=== PATIENT | female | born 1965 | race Caucasian/White ===

== ENCOUNTER 2018-08-11 17:00 | Inpatient (IN) ==
--- NOTE | 2018-08-11 18:02 | PROVIDER DOCUMENTATION ---
This chart was entered by Ivon Pierre Scribe, acting as scribe for Carlotta Garcia MD. HPI-General Adult - General Source: patient - History of Present Illness -Gen Adult Nature of Presenting Problems: Patient is a 52 year old female who presents to the ED with cough, nasal congestion and fever. Patient states she was diagnosed with pneumonia 2 days ago. Patient states was seen again today at an Urgent Care and was informed to go to the ED. Patient does not report chest pain or shortness of breath. Location of Pain/Injury: reports: none Pain Radiation: reports: no radiation Quality of Pain: reports: none Severity: reports: mild Timing: reports: still present Context/Activities at Onset: reports: light activity Modifying Factors: improves with: nothing Associated Symptoms: reports: cough, fever/chills (fever), sinus congestion/ drainage (congestion) Similar Symptoms Previously?: Yes Recently seen or treated by another doctor?: Yes <Carlotta Garcia - Last Filed: 08/11/18 18:24> - History of Present Illness -Gen Adult Nature of Presenting Problems: Patient has history of right upper lobe lung cancer that was removed last year. <Issac Swanson - Last Filed: 08/12/18 01:24> - General Chief Complaint: Cough Stated Complaint: RETURN/RETREAT Time Seen by Provider: 08/11/18 17:35 Allergies/Adverse Reactions: Patient Allergies Allergy/AdvReac Type Severity Reaction Status Date / Time clindamycin Allergy NAUSEA/VOMI Verified 08/11/18 17:25 TING codeine [Codeine] Allergy NAUSEA/VOMI Verified 08/11/18 17:25 TING hydrocodone bitartrate * Allergy NAUSEA/VOMI Verified 08/11/18 17:25 [From Lortab] TING levofloxacin [From Levaquin] Allergy RASH Verified 08/11/18 17:25 meperidine [From Demerol] Allergy NAUSEA/VOMI Verified 08/11/18 17:25 TING morphine Allergy NAUSEA/VOMI Verified 08/11/18 17:25 TING nitrofurantoin Allergy NAUSEA Verified 08/11/18 17:25 macrocrystalline * [From Macrodantin] promethazine HCl * Allergy NAUSEA/VOMI Verified 08/11/18 17:25 [From Phenergan] TING sulfamethoxazole Allergy NAUSEA/VOMI Verified 08/11/18 17:25 [From Bactrim] TING tramadol HCl * [From Ultram] Allergy NAUSEA Verified 08/11/18 17:25 trimethoprim [From Bactrim] Allergy NAUSEA/VOMI Verified 08/11/18 17:25 TING Home Medications: Home Medication List Medication Instructions Recorded Confirmed Last Taken Type Ondansetron [Zofran] 4 mg PO Q6H PRN PRN 01/20/18 01/20/18 01/20/18 09:00 History Ipratropium/Albuterol INH 1 puff INH RTQ6H PRN #1 inhaler 01/27/18 Unknown Rx [Combivent Respimat Inhaler] Omeprazole [Prilosec] 40 mg PO BID capsule 01/27/18 Unknown Rx Sucralfate [Carafate Liquid] 1 gm PO Q6HR udc 01/27/18 Unknown Rx Warfarin [Coumadin] 5 mg PO QHS #30 tablet 01/27/18 Unknown Rx CefDINIR [Omnicef] 250 mg PO BID #100 bottle 08/10/18 Unknown Rx Ketorolac [Toradol] 10 mg PO Q6H PRN PRN #20 tab 08/10/18 Unknown Rx Review of Systems - Adult - REVIEW OF SYSTEMS - ADULT Constitutional: reports: fever. denies: chills, fatique Eyes: reports: no symptoms reported Ears, Nose, Mouth & Throat: reports: sinus problem (congestion). denies: ear pain, throat pain Cardiovascular: reports: no symptoms reported Respiratory: reports: cough. denies: shortness of breath, wheezing Gastrointestinal: reports: no symptoms reported Genitourinary: reports: no symptoms reported Musculoskeletal: reports: no symptoms reported Integumentary: reports: no symptoms reported Neurological: reports: no symptoms reported Psychiatric: reports: no symptoms reported Endocrine: reports: no symptoms reported Hematologic/Lymphatic: reports: no symptoms reported Allergic/Immunologic: reports: no symptoms reported All Other Systems: Reviewed and Negative <JoseMorgani Steven - Last Filed: 08/11/18 18:24> Past History - Adult - PAST MEDICAL HISTORY-ADULT Review of Records: reports: Nursing Assessment Review, Medications Reviewed, Social history reviewed & non-contributory. Major Childhood Illnesses: reports: denies history Cardiovascular: reports: CHF, hyperlipidemia, other (vascular aaa dissection) Respiratory: reports: bronchitis, COPD, cancer (lung), other (clubbed fingers) Gastrointestinal: reports: GERD Obstetrical/Gynecological: reports: denies history Genitourinary: reports: denies history Musculoskeletal: reports: denies history Neurological: reports: denies history Psychiatric: reports: denies history Endocrine/Immune: reports: denies history Other Conditions: reports: denies history - PRIOR SURGERIES/PROCEDURES Surgical/Procedure History: reports: recent surgery (10/02/17 lung cancer removal) , BTL, other (vacular aaa diss) - IMMUNIZATION STATUS Childhood Immunizations: See Nurse Assessment Flu Vaccine: See Nurse Assessment - FAMILY HISTORY Family History: reviewed, not pertinent - SOCIAL HISTORY Smoking: cigarettes, less than 1 pack/day Provider spent 3-5 mins advising pt. on dangers of tobacco.: Discussed manners to quit use, and f/u contacts for add'l counseling. Substance Use: denies <Carlotta Garcia - Last Filed: 08/11/18 18:24> Physical Exam-General - PHYSICAL EXAM-ADULT Initial Vital Signs Reviewed: Yes - CONSTITUTIONAL General Appearance: alert, no apparent distress - EYES Eyes: PERRL/EOMI, pink conjunctivae - HEAD, EARS, NOSE, MOUTH & THROAT HENMT: normal ENT inspection - NECK Neck: normal inspection - RESPIRATORY Respiratory: chest non-tender, decreased breath sounds (bilateral) - CARDIOVASCULAR Cardiovascular: normal peripheral pulses, tachycardia - GASTROINTESTINAL (ABDOMEN) Abdominal Exam: normal bowel sounds, non tender, soft - MUSCULOSKELETAL Extremity: non-tender, normal inspection - SKIN Integumentary: normal color, normal turgor, warm/dry - NEUROLOGIC Neurologic: grossly normal - PSYCHIATRIC Psych/Mental Status: normal mood/affect, oriented x 3 <Carlotta Garcia - Last Filed: 08/11/18 18:24> Progress - PLAN OF CARE/RESULTS Progress/Plan/Lab Results: Vital Signs - 8 hr 08/11/18 17:21 Temperature 101.6 F H Pulse Rate 146 H Respiratory Rate 20 Blood Pressure 103/74 O2 Sat by Pulse Oximetry 96 Result Diagrams: 08/11/18 17:26 <Carlotta Garcia - Last Filed: 08/11/18 18:24> - PLAN OF CARE/RESULTS Progress/Plan/Lab Results: Vital Signs - 8 hr 08/11/18 17:21 08/11/18 18:21 08/11/18 19:07 Temperature 101.6 F H 101.2 F H 100.9 F H Pulse Rate 146 H 127 H 120 H Respiratory Rate 20 23 19 Blood Pressure 103/74 116/69 95/55 O2 Sat by Pulse Oximetry 96 98 97 08/11/18 19:42 08/11/18 19:57 08/11/18 20:26 Temperature 101.0 F H Pulse Rate 113 H 105 H 101 H Respiratory Rate 20 19 15 Blood Pressure 86/51 90/56 94/74 O2 Sat by Pulse Oximetry 98 98 99 08/11/18 20:50 08/11/18 21:00 08/11/18 21:21 Temperature Pulse Rate 97 H 94 H 95 H Respiratory Rate 18 14 18 Blood Pressure 98/66 96/57 90/58 O2 Sat by Pulse Oximetry 98 97 98 Laboratory Results - last 24 hr 08/11/18 08/11/18 08/11/18 17:26 17:26 17:26 WBC RBC Hgb Hct MCV MCH MCHC RDW Std Deviation Plt Count MPV Immature Gran % (Auto) Neut % (Auto) Lymph % (Auto) [place] % (Auto) Eos % (Auto) Baso % (Auto) Immature Gran # (Auto) Neut # (Auto) Lymph # (Auto) [place] # (Auto) Eos # (Auto) Baso # (Auto) PT INR PTT (Actin FS) Sodium 128 L Potassium 4.1 Chloride 92 L Carbon Dioxide 22 L Anion Gap 14 BUN 11 D Creatinine 0.8 Estimated GFR/1.73 m2 > 60 BUN/Creatinine Ratio 14 Glucose 125 H Calculated Osmolality 258 Calcium 9.5 Total Bilirubin 0.80 AST 49 H ALT 41 H Alkaline Phosphatase 165 H Creatine Kinase Troponin T < 0.010 Hqy-Q-Ghctarzrcxn Pept 346 H Total Protein 7.2 Albumin 4.1 Globulin 3.0 Albumin/Globulin Ratio 1.0 Plasma Lactate 08/11/18 08/11/18 08/11/18 17:26 18:07 18:07 WBC 9.70 RBC 4.00 L Hgb 13.4 Hct 38.0 MCV 95.0 MCH 33.5 H MCHC 35.3 RDW Std Deviation 11.5 Plt Count 174 MPV 10.6 H Immature Gran % (Auto) 0.1 Neut % (Auto) 81.6 H Lymph % (Auto) 11.6 L [place] % (Auto) 6.6 Eos % (Auto) 0.0 Baso % (Auto) 0.1 Immature Gran # (Auto) 0.01 Neut # (Auto) 7.91 H Lymph # (Auto) 1.13 L [place] # (Auto) 0.64 H Eos # (Auto) 0.00 Baso # (Auto) 0.01 PT 13.6 INR 0.99 PTT (Actin FS) 35.6 Sodium Potassium Chloride Carbon Dioxide Anion Gap BUN Creatinine Estimated GFR/1.73 m2 BUN/Creatinine Ratio Glucose Calculated Osmolality Calcium Total Bilirubin AST ALT Alkaline Phosphatase Creatine Kinase 54 Troponin T Asi-P-Wrewevcyphk Pept Total Protein Albumin Globulin Albumin/Globulin Ratio Plasma Lactate 08/11/18 18:11 WBC RBC Hgb Hct MCV MCH MCHC RDW Std Deviation Plt Count MPV Immature Gran % (Auto) Neut % (Auto) Lymph % (Auto) [place] % (Auto) Eos % (Auto) Baso % (Auto) Immature Gran # (Auto) Neut # (Auto) Lymph # (Auto) [place] # (Auto) Eos # (Auto) Baso # (Auto) PT INR PTT (Actin FS) Sodium Potassium Chloride Carbon Dioxide Anion Gap BUN Creatinine Estimated GFR/1.73 m2 BUN/Creatinine Ratio Glucose Calculated Osmolality Calcium Total Bilirubin AST ALT Alkaline Phosphatase Creatine Kinase Troponin T Zlr-I-Nlaamdextvt Pept Total Protein Albumin Globulin Albumin/Globulin Ratio Plasma Lactate 0.9 Orders Category Date Time Status Cardiac Monitoring DIRECTED Care 08/11/18 18:22 Active [place] Cath Insertion ORDERED Care 08/11/18 19:44 Active IV Insertion ORDERED Care 08/11/18 18:22 Completed IV Insertion ORDERED Care 08/11/18 19:44 Completed Intake and Output-Strict ORDERED Care 08/11/18 19:44 Active Notify MD of + Sepsis Screen NOW Care 08/11/18 18:22 Active Notify MD/PA/LONDON for exam NOW Care 08/11/18 19:44 Active Repeat Vital Signs .Blood Pressure Care 08/11/18 19:44 Active Repeat Vital Signs .Heart Rate Care 08/11/18 19:44 Active Repeat Vital Signs .Oxygen Saturation Care 08/11/18 19:44 Active Repeat Vital Signs .Respiratory Rate Care 08/11/18 19:44 Active Repeat Vital Signs .Temp Care 08/11/18 19:44 Active CHEST-PORTABLE [RAD] Stat Exams 08/11/18 17:[address] ABD/PELVIS/PULM ARTERIES [CT] Stat Exams 08/11/18 19:10 Ordered BLOOD CULTURE [BLDCUL] Stat Lab 08/11/18 17:58 Ordered CBC WITH ELECTRONIC DIFF [HEME] Stat Lab 08/11/18 17:26 Completed CK PROFILE [SP CHEM] Stat Lab 08/11/18 18:07 Completed COMPREHENSIVE METABOLIC PANEL [CHEM] Stat Lab 08/11/18 17:26 Completed LACTATE, PLASMA [CHEM] Lab 08/11/18 18:11 Completed LACTATE, PLASMA [CHEM] Lab 08/11/18 21:30 Uncollected LACTATE, PLASMA [CHEM] Lab 08/12/18 00:30 Uncollected PRO B-NATRIURETIC PEPTIDE Stat Lab 08/11/18 17:26 Completed PROTIME WITH INR [COAG] Stat Lab 08/11/18 18:07 Completed PTT [COAG] Stat Lab 08/11/18 18:07 Completed TROPONIN T Stat Lab 08/11/18 17:26 Completed 0.9% Sodium Chloride Inj [Ns] 1,000 ml Med 08/11/18 19:43 Discontinued IV As Directed 0.9% Sodium Chloride Inj [Ns] 1,000 ml Med 08/11/18 18:23 Discontinued IV Wide Open 0.9% Sodium Chloride Inj [Ns] 500 ml Med 08/11/18 19:43 Discontinued IV 999 mls/hr Acetaminophen Liquid [Tylenol Liquid] Med 08/11/18 18:24 Discontinued 1,000 mg PO NOW ONE Dextrose 5%-0.45% NaCl Inj [D5 1/2 Ns] 250 ml Med 08/11/18 19:45 Active Norepinephrine [Levophed] 8 mg IV As Directed Piperacillin/Tazobactam [Zosyn] 3.375 gm Med 08/11/18 19:43 Discontinued 0.9% Sodium Chloride Inj [Ns] 50 ml IV NOW Vancomycin 1 gm/Ns Med 08/11/18 19:43 Discontinued 1 gm in 250 ml IV NOW Oxygen Device Stat Oth 08/11/18 18:22 Active Result Diagrams: 08/11/18 17:26 08/11/18 17:26 - CT/MRI 1 CT Study: Abdomen, Pelvis, Thorax CT Results: left lingular consolidation, ventral abdominal wall hernia, no PE - CONSULTS/PCP/HOSPITALIST Notification #1 *Consult/PCP/Hospitalist*: Dr. Knapp, hospitalist Time Discussed: 00:05 Consult Disposition: Admit <Issac Swanson - Last Filed: 08/12/18 01:24> Departure <Carlotta Garcia - Last Filed: 08/11/18 18:24> - Departure Date of Disposition Decision: 08/12/18 Time of Disposition Decision: 01:24 Certified Medical Emergency: Emergent - Critical Care Note This patient required my direct & personal management of CC.: No <Issac Swanson - Last Filed: 08/12/18 01:24> - Departure DIAGNOSIS: Left lower lobe pneumonia Qualifiers: Pneumonia type: due to unspecified organism Qualified Code(s): J18.1 - Lobar pneumonia, unspecified organism Hypotension Qualifiers: Hypotension type: unspecified hypotension type Qualified Code(s): I95.9 - Hypotension, unspecified Disposition: ADMITTED INPATIENT 09 Condition: Stable Referrals and Follow-Ups: Evan Knapp MD [Primary Care Provider] - Attestation - Physician/ SCOTT Attestation The physician spent face to face time with patient:: Yes Advanced Practice Provider documentation review:: Supervising physician onsite and consulted in the evaluation and care of this patient. The physician did have a face to face encounter with the patient. <Carlotta Garcia - Last Filed: 08/11/18 18:24> - Physician/ SCOTT Attestation Patient care was provided by Advanced Practice Provider:: No The physician spent face to face time with patient:: Yes Advanced Practice Provider documentation review:: Supervising physician onsite and consulted in the evaluation and care of this patient. The physician did have a face to face encounter with the patient. <Issac Swanson - Last Filed: 08/12/18 01:24> This chart was documented by the indicated scribe, (Ivon Pierre Scribe) and accurately reflects the services I performed and decisions made by , Carlotta Garcia MD, as attested by the provider's signature.
[2018-08-11 18:21] LABS: BASO# 0.01 X1000 (0.0-0.2); BASO% 0.1 % (0.0-0.8); HEMOGLOBIN 13.4 g/dL (12.0-16.0); IMM GRAN# 0.01 X1000 (0.0-0.04); IMM GRAN% 0.1 % (0.0-0.5); LYMPH# 1.13 X1000 (1.2-3.4); LYMPH% 11.6 % (20.5-51.1); MCH 33.5 PG (27-31); MCHC 35.3 g/dL (33-37); MONO# 0.64 X1000 (0.11-0.59); MONO% 6.6 % (1.7-9.3); MPV 10.6 FL (7.4-10.4); NEUT# 7.91 X1000 (1.4-6.5); NEUT% 81.6 % (42.2-75.2); PLT 174 X1000 (130-400); RDW 11.5 % (11.5-14.5)
[2018-08-11] MEDS ORDERED: NS 1,000 ML IV ONE ×2 (18:23→19:43)
[2018-08-11] MEDS ORDERED: TYLENOL LIQUID PO ONE (18:24)
[2018-08-11 18:38] LABS: INR 0.99; PROTIME 13.6 Seconds (11.0-16.0)
[2018-08-11 18:39] LABS: PTT 35.6 Seconds (22.3-41.8)
[2018-08-11 18:50] LABS: AGAP 14; ALBUMIN 4.1 g/dL (3.5-5.0); ALKALINE PHOSPHATASE 165 U/L (32-104); BUN 11 mg/dL (8-22); CALCIUM 9.5 mg/dL (8.8-10.2); CHLORIDE 92 mmol/L (98-107); COSMO 258; CREATININE 0.8 mg/dL (0.5-0.9); ESTIMATED GFR > 60; GLUCOSE 125 mg/dL (70-104); GOT 49 U/L (10-30); GPT 41 U/L (10-36); POTASSIUM 4.1 mmol/L (3.5-5.1); SODIUM 128 mmol/L (136-145); TCO2 22 mmol/L (25-35); TOTAL PROTEIN 7.2 g/dL (6.3-8.3)
--- NOTE | 2018-08-11 19:03 | Diag Imaging Result Doc PS360 ---
EXAM: CHEST-PORTABLE HISTORY: chest pain, cough TECHNIQUE: Portable chest COMPARISON: 08/10/2018 FINDINGS: There has been extensive surgery to the right side of the chest. Contusion versus infiltrate in the lower left lung remains. No interval improvement. No cardiomegaly. No pleural effusions identified. IMPRESSION: No interval improvement. Electronically signed by Scar Baxter 08/11/2018 7:01 PM
[2018-08-11] MEDS ORDERED: VANCOMYCIN 1 GM/NS 1 GM/250 ML IVPB IV ONE (19:43)
[2018-08-11] MEDS ORDERED: ZOSYN 3.375 GM in NS 50 ML IV ONE (19:43)
[2018-08-11] MEDS ORDERED: NS 500 ML IV ONE (19:43)
[2018-08-11] MEDS ORDERED: LEVOPHED 8 MG in D5 1/2 NS 250 ML IV SCH (19:45)
[2018-08-11] MEDS ORDERED: NS 500 ML ONE (21:57)
[2018-08-11] MEDS ORDERED: BENADRYL IV ONE (23:00)
[2018-08-12] MEDS ORDERED: NS 1,000 ML IV ONE (01:16)
[2018-08-12] MEDS ORDERED: ZOFRAN IV PRN ×2 (01:16→12:08)
[2018-08-12] MEDS ORDERED: VANCOMYCIN IV PER PHARMACY MISC SCH (01:30)
[2018-08-12] MEDS: DUONEB (A & A) INH SCH ×6 (03:30→23:38)
[2018-08-12] MEDS: ZOSYN 3.375 GM in NS 50 ML IV SCH ×4 (05:31→23:12)
--- NOTE | 2018-08-12 08:22 | Diag Imaging Result Doc PS360 ---
EXAM: CT ABD/PELVIS/PULM ARTERIES HISTORY: sob, hypotensive, lll pneumonia, elevated LFT, sepsis, tachycardi TECHNIQUE: Routine CT angiogram of the thorax with 3-D postprocessing. CT abdomen and pelvis with IV contrast. COMPARISON: 12/30/2017. FINDINGS: Preliminary interpretation was given by [facility]. CT angiogram thorax: There is appropriate opacification of the pulmonary arteries. No filling defects are identified to suggest acute pulmonary embolism area no aortic aneurysm or dissection is appreciated. Prominent left hilar lymph nodes. There is dense lingular consolidation suspicious for pneumonia. There are postsurgical changes right upper hemithorax with surgical plates. There is a small thick-walled loculated pneumothorax anterolaterally. There is pleural thickening posteriorly. There are fixation plates involving the right ribs. The most inferior plate extends deep to the ribs into the pleura. There is no pleural effusion. IMPRESSION: 1.No evidence for acute pulmonary embolism. 2.Left upper lobe consolidations. 3.Postsurgical changes right upper lobe with small loculated pneumothorax. . CT abdomen and pelvis with contrast: There are cholecystectomy clips. There is a gastrostomy tube in appropriate position. There is bilateral hydronephrosis right greater than left with dilatation of the ureters and marked distention of the urinary bladder. No urolithiasis is appreciated. No small or large bowel distention. No free fluid or free air. The appendix is not visualized. There is a small ventral hernia containing a dense small focus of nondilated small bowel. There is scattered calcific atherosclerotic disease. Subcutaneous gas in the gluteal regions are noted and likely iatrogenic. Correlate clinically. The solid visceral organs are unremarkable. IMPRESSION: 1.Distended urinary bladder with bilateral hydroureteronephrosis. 2.Small ventral abdominal wall hernia containing small bowel without obstruction. This exam was performed using automated exposure control, adjustment of mA or kV according to patient size, and/or use of iterative reconstruction technique. Electronically signed by Karmen Ramírez 08/12/2018 8:20 AM
[2018-08-12] MEDS ORDERED: NS 1,000 ML IV SCH (12:15)
[2018-08-12 16:23] LABS: AGAP 13; BUN 5 mg/dL (8-22); CALCIUM 8.2 mg/dL (8.8-10.2); CHLORIDE 100 mmol/L (98-107); COSMO 262; CREATININE 0.7 mg/dL (0.5-0.9); ESTIMATED GFR > 60; GLUCOSE 100 mg/dL (70-104); SODIUM 132 mmol/L (136-145); TCO2 20 mmol/L (25-35)
[2018-08-12] MEDS: PROTONIX IV SCH (18:42)
[2018-08-12] MEDS: POTASSIUM CHLORIDE 20% LIQUID PEG SCH (18:42)
[2018-08-12] MEDS: SODIUM CHLORIDE 0.9% INJ SCH (18:42)
--- NOTE | 2018-08-12 18:42 | Diag Imaging Result Doc PS360 ---
EXAM: CHEST-PORTABLE 08/12/2018 HISTORY: sepsis protocol TECHNIQUE: AP portable at 1827 COMMENT: Compared to 08/11/2018 the opacity laterally in the in the left lower lung has increased in size since the previous study. The inspiration is less optimal than on the previous study. IMPRESSION: Worsened pneumonia left lower lobe. Electronically signed by Adam Vasquez 08/12/2018 6:40 PM
[2018-08-12] MEDS: OFIRMEV 1000 MG/ISOTONIC SOLN 1,000 MG/100 ML BOTTLE IV PRN (18:54)
[2018-08-12] MEDS: NS 1,000 ML IV SCH ×2 (18:58→20:55)
[2018-08-12 19:02] LABS: BASO# 0.03 X1000 (0.0-0.2); BASO% 0.5 % (0.0-0.8); EOS# 0.02 X1000 (0.0-0.7); EOS% 0.3 % (0.0-10.0); HEMATOCRIT 29.1 % (37.0-47.0); HEMOGLOBIN 10.1 g/dL (12.0-16.0); IMM GRAN# 0.01 X1000 (0.0-0.04); IMM GRAN% 0.2 % (0.0-0.5); LYMPH# 1.32 X1000 (1.2-3.4); LYMPH% 21.7 % (20.5-51.1); MCH 33.3 PG (27-31); MCHC 34.7 g/dL (33-37); MONO% 6.6 % (1.7-9.3); MPV 10.1 FL (7.4-10.4); NEUT% 70.7 % (42.2-75.2); PLT 156 X1000 (130-400); RBC 3.03 XMIL (4.2-5.4); RDW 11.3 % (11.5-14.5); WBC 6.08 X1000 (4.8-10.8)
[2018-08-12 19:04] LABS: INR 1.04; PROTIME 14.1 Seconds (11.0-16.0)
[2018-08-12 19:05] LABS: PTT 33.5 Seconds (22.3-41.8)
[2018-08-12 19:19] LABS: AGAP 13; ALKALINE PHOSPHATASE 153 U/L (32-104); BUN 5 mg/dL (8-22); CALCIUM 7.9 mg/dL (8.8-10.2); CHLORIDE 99 mmol/L (98-107); CK PROFILE 48 U/L (24-173); COSMO 261; CREATININE 0.7 mg/dL (0.5-0.9); ESTIMATED GFR > 60; GLUCOSE 121 mg/dL (70-104); GOT 61 U/L (10-30); GPT 56 U/L (10-36); POTASSIUM 2.9 mmol/L (3.5-5.1); SODIUM 131 mmol/L (136-145); TCO2 19 mmol/L (25-35); TOTAL PROTEIN 5.3 g/dL (6.3-8.3)
[2018-08-12] MEDS: VANCOMYCIN 1 GM/NS 1 GM/250 ML IVPB IV SCH (19:44)
[2018-08-12 19:59] LABS: BILIRUBIN URINE NEGATIVE (NEGATIVE); BLOOD URINE TRACE (NEGATIVE); CLARITY CLEAR (CLEAR); COLOR YELLOW; GLUCOSE URINE NEGATIVE (NEGATIVE); KETONE URINE NEGATIVE (NEGATIVE); LEUKOCYTES URINE 1+ (NEGATIVE); NITRITE URINE POSITIVE (NEGATIVE); PROTEIN URINE 1+(30 mg/dL) mg/dL (NEGATIVE); UROBILINOGEN URINE 4 mg/dL
[2018-08-12 20:29] LABS: URINE BACTERIA 1+ /HFP; URINE CAST NONE SEEN /LPF; URINE CRYSTAL NONE SEEN /HPF; URINE EPITHELIAL CELLS <10 /HPF (<10); URINE RBC <10 /HPF (<10); URINE WBC <10 /HPF (<10); URINE YEAST NONE SEEN /HPF
[2018-08-12 20:30] LABS: URINE SOURCE CATH
[2018-08-12] MEDS: NEO-SYNEPHRINE 50 MG in NS 250 ML IV SCH (20:50)
[2018-08-12] MEDS ORDERED: VANCOMYCIN 750 MG in NS 250 ML IV SCH (21:00)
--- NOTE | 2018-08-12 23:13 | HISTORY AND PHYSICAL ---
PRIMARY CARE PROVIDER: Evan Knapp MD. CHIEF COMPLAINT: Cough, runny nose, congestion. HISTORY OF PRESENT ILLNESS: This is a 52-year-old female with a history of squamous cell carcinoma of the right lung, COPD, as well as gastroesophageal reflux disease. She presents to the emergency room complaining of 2 to 3 days of cough, fever, chills. She states that she was seen at a walk-in clinic 2 days ago and was diagnosed with pneumonia. She did not fill antibiotics. She returned to the walk-in clinic prior to coming to the emergency room, and they recommended she come to the hospital to get IV antibiotics. Her chest x-ray revealed left lower lung infiltrate, and CT of the pulmonary arteries, abdomen, and pelvis was performed which revealed left upper lobe consolidations, postsurgical changes in the right upper lobe with small loculated pneumothorax. Blood cultures were obtained in the emergency room. She was given vancomycin and Zosyn and has been admitted for further evaluation and treatment. PAST MEDICAL HISTORY: 1. Squamous cell carcinoma of the right lung, status post resection in October 2017. She has had no chemotherapy since December 2017 per her report. 2. Gastroesophageal reflux disease. 3. Intractable nausea and vomiting. 4. History of aortobifemoral graft. The patient stopped anticoagulation in October 2017. 5. Hyponatremia which is chronic. 6. Left upper lobe pneumonia. 7. Small loculated pneumothorax, right upper lobe. 8. Biliary dyskinesia, status post laparoscopic cholecystectomy. 9. Anxiety and depression. PAST SURGICAL HISTORY: 1. Aortobifemoral graft in 2008. 2. Iliac stent placement. 3. Lung resection of the right lobe in October 2017. 4. Laparoscopic cholecystectomy in January 2018. SOCIAL HISTORY: She smokes 1 to 2 packs a day. She denies any alcohol or illicit drug use. ALLERGIES: Clindamycin, codeine, Zuni, Levaquin, Demerol, morphine, Macrodantin, Phenergan, Bactrim, and Ultram. All cause nausea and vomiting. HOME MEDICATIONS: The patient is taking no medications. REVIEW OF SYSTEMS: Discussed with the patient with pertinent positives stated in the HPI. She denied any syncope, dizziness, any chest pain or palpitations, a productive cough, any night sweats, any black or bloody vomitus or stools, or any hematuria, dysuria, frequency, or urgency. PHYSICAL EXAMINATION: GENERAL: This is a 52-year-old female who is lying in the bed in no distress. VITAL SIGNS: Blood pressure is 131/71 with a heart rate of 78, respirations are 18, temperature is 98.2 degrees with O2 saturations of 100%. EYES: Pupils are equal, round, react to light. EOMs are intact. Sclerae are anicteric. HENT: Head is normocephalic, atraumatic. Mucous membranes are dry. NECK: Supple, with trachea midline. CARDIOVASCULAR: Regular rate and rhythm. S1 and S2 appreciated. She has no lower extremity edema. No gallops or murmurs. PULMONARY: Breath sounds are diminished in the bases bilaterally. Chest rises and falls symmetrically with respiration. GASTROINTESTINAL: Abdomen is soft, nontender, nondistended, with bowel sounds in all 4 quadrants. GENITOURINARY: She has no CVA nor suprapubic tenderness. NEUROLOGIC: She is alert and oriented. LABORATORIES: 1. WBC is 9 with hemoglobin 13.4, hematocrit 38, and platelets of 174,000. Sodium is 128, potassium 4.1, BUN 11, creatinine 0.8 with a glucose of 125. AST is 49, ALT is 41, and alkaline phosphatase is 165. 2. Chest x-ray revealed left lower lobe infiltrate. 3. CTA of pulmonaries reveals no evidence for pulmonary embolism, left upper lobe consolidations, postsurgical changes right upper lobe with small loculated pneumothorax. CT of the abdomen and pelvis reveals cholecystectomy clips. There is a gastrostomy tube in appropriate position. There is bilateral hydronephrosis of right greater than left, with dilatation of the ureters and marked distention of the bladder. No small or large bowel distention. No free fluid or free air. The appendix is not visualized. There is a ventral hernia containing a dense, small focus of nondilated small bowel. There is scattered atherosclerotic disease. 4. Blood cultures are pending. ASSESSMENT AND PLAN: 1. Left upper lobe pneumonia. Blood cultures were drawn in the emergency room. She was given vancomycin and Zosyn. We will continue these and further dose by pharmacy as needed, and further antibiotics will be culture driven. We will give DuoNebs, supplemental oxygen as needed. We will start incentive spirometer per Respiratory Therapy. 2. Right upper lobe small, loculated pneumothorax. We will consult Dr. Haro in Surgery. 3. Hyponatremia. Looking back at the patient's records, this is chronic. We will give saline and trend labs. 4. Hypokalemia. We will replete and trend electrolytes. 5. Squamous cell carcinoma of the right lung, status post resection in October 2017. This is being followed by Dr. Freeman. 6. Severe protein-calorie malnutrition. The patient has a percutaneous endoscopic gastrostomy in place. She states that she does not remember what nutrition she has been on in the past. She does state that she has no insurance, and she is not regularly doing feedings. We will consult the dietitian to assist with feedings and nutrition. 7. History of aortobifemoral graft in 2008. The patient is supposed to be on Coumadin. She stopped taking her Coumadin in October 2017. She stated she had no insurance, and she could not pay for the medicine nor the INRs. 8. Anxiety and depression. The patient is on no medications at present for this. We will re- evaluate. 9. We will consult Housing Assistant for discharge planning and assistance. We will consult dietitian regarding feeding and nutrition status. We will get a CBC and a CMP in the morning. We will give gentle IV hydration. We will use Zofran for nausea and start Protonix for GI prophylaxis. Further treatments pending hospital course. Dictated by LONDON Edgar for Evan Knapp MD This chart was documented by, LONDON Edgar and accurately reflects the services performed, treatment plan and medical decisions as attested by the providers signature Evan Knapp MD. cc: LONDON Edgar MD
[2018-08-13] MEDS: OFIRMEV 1000 MG/ISOTONIC SOLN 1,000 MG/100 ML BOTTLE IV PRN ×2 (01:48→19:56)
[2018-08-13] MEDS: NS 1,000 ML IV SCH ×3 (01:58→19:15)
--- NOTE | 2018-08-13 02:12 | HISTORY AND PHYSICAL ---
ADDENDUM: Patient seen and examined by myself. Full note dictated and discussed with nurse practitioner. Patient presented to the hospital with increased cough and congestion. She was recently seen at a walk-in clinic and was diagnosed with pneumonia. She has not followed up in the office for unclear reason. Currently, she is awake, alert. She is oriented. She does complain of having fevers, chills and sinus congestion. Notes that she has mild cough. Denies any shortness of breath. We will admit her to the hospital, place her on antibiotics, breathing treatments and we will follow. cc: Evan Knapp MD
--- NOTE | 2018-08-13 03:51 | CONSULTATION ---
DATE OF CONSULTATION: 08/12/2018 INDICATIONS: Ms. Majo Bills is a 52-year-old, white female who has a history of lung cancer and has undergone a right upper lobe lung resection. She has also had stabilization of her ribs on the right. She has lost a significant amount of weight. She is undergoing chemotherapy under the direction of Dr. Álvarez and Dr. Freeman. She has had some nausea and vomiting. She was admitted to [facility] with what appears to be a left-sided pneumonia. We were asked to evaluate her for a loculated pneumothorax, right apex. PHYSICAL EXAMINATION: General: On examination, she is hemodynamically satisfactory. She has been moved to the ICU. She is awake and cooperative. She has lost her hair. She is very slim. She has no focal deficits. She is hemodynamically satisfactory except she is tachycardic. She has mild shortness of breath. She has equal breath sounds. Cardiovascular: Her heart has a regular rate. Gastrointestinal: Her abdomen was soft without tenderness or palpable mass. Integumentary: She has had previous vascular surgery. She has no evidence of incarcerated or a strangulated ventral hernia. Extremities: She has palpable femoral pulses. No peripheral edema. DIAGNOSTIC DATA: I have reviewed her plain chest x-ray and also the CT scan of her lung. She does have an area of loculated pneumothorax, apex of the right lung. I think it is related to her previous surgery and rib stabilization. There does not appear to be any empyema or problems with this loculated pneumothorax which appears to be small and surgery related. ASSESSMENT AND PLAN: She is being treated by our hospitalists for possible pneumonia. cc: Juana Haro MD
[2018-08-13] MEDS: ZOSYN 3.375 GM in NS 50 ML IV SCH ×4 (05:01→22:44)
[2018-08-13 07:02] LABS: HEMATOCRIT 30.6 % (37.0-47.0); HEMOGLOBIN 10.2 g/dL (12.0-16.0); MCH 32.4 PG (27-31); MCHC 33.3 g/dL (33-37); MCV 97.1 FL (81-99); MPV 10.8 FL (7.4-10.4); RBC 3.15 XMIL (4.2-5.4); RDW 11.5 % (11.5-14.5); WBC 7.77 X1000 (4.8-10.8)
[2018-08-13 07:23] LABS: AGAP 12; ALBUMIN 2.8 g/dL (3.5-5.0); ALKALINE PHOSPHATASE 181 U/L (32-104); BUN 4 mg/dL (8-22); CALCIUM 8.2 mg/dL (8.8-10.2); CHLORIDE 107 mmol/L (98-107); COSMO 269; CREATININE 0.6 mg/dL (0.5-0.9); ESTIMATED GFR > 60; GLUCOSE 106 mg/dL (70-104); GOT 94 U/L (10-30); GPT 75 U/L (10-36); POTASSIUM 3.9 mmol/L (3.5-5.1); SODIUM 136 mmol/L (136-145); TCO2 17 mmol/L (25-35); TOTAL PROTEIN 5.5 g/dL (6.3-8.3)
[2018-08-13] MEDS: DUONEB (A & A) INH SCH ×3 (08:57→16:46)
[2018-08-13] MEDS: POTASSIUM CHLORIDE 20% LIQUID PEG SCH (09:47)
[2018-08-13] MEDS: PROTONIX IV SCH (16:45)
[2018-08-13] MEDS: XOPENEX NEB INH SCH (19:51)
[2018-08-13] MEDS: VANCOMYCIN 1 GM/NS 1 GM/250 ML IVPB IV SCH (19:51)
[2018-08-13] MEDS: ATROVENT NEB INH SCH (19:51)
[2018-08-14] MEDS: ATROVENT NEB INH SCH ×7 (00:24→23:21)
[2018-08-14] MEDS: XOPENEX NEB INH SCH ×7 (00:24→23:21)
[2018-08-14] MEDS: DUONEB (A & A) INH SCH (00:26)
--- NOTE | 2018-08-14 04:03 | PROGRESS NOTE ---
DATE: 08/13/2018 SUBJECTIVE: Patient notes that overall is feeling better and denies any fevers or chills. States that her blood pressures are always low. PHYSICAL EXAMINATION: Vital Signs: Temperature 98 degrees, pulse 71, respiratory 19, BP 98/62 to 140/77, but he is currently on Janusz-Synephrine. Saturation 100% on room air. General: Patient is a very frail-appearing female who appears older than her stated age. HEENT: Normocephalic. Neck: Supple. CARDIOVASCULAR: Regular rate. Chest: Clear, nonlabored. Abdomen: Soft, nondistended. Extremities: Moves all extremities. ASSESSMENT: 1. Chronic obstructive pulmonary disease with exacerbation. 2. Squamous cell carcinoma of the lung. 3. Hypotension, stable. 4. Pneumonia. PLAN: We will continue patient in the hospital. Continue IV fluids, antibiotics, breathing treatments as needed. We will her Janusz-Synephrine and we will follow. cc: Evan Knapp MD
[2018-08-14] MEDS: NS 1,000 ML IV SCH ×4 (05:30→22:46)
[2018-08-14] MEDS: ZOSYN 3.375 GM in NS 50 ML IV SCH ×4 (05:30→22:47)
[2018-08-14] MEDS: POTASSIUM CHLORIDE 20% LIQUID PEG SCH (08:36)
[2018-08-14] MEDS: SODIUM CHLORIDE 0.9% INJ SCH (17:40)
[2018-08-14] MEDS: PROTONIX IV SCH (17:40)
[2018-08-14] MEDS: TYLENOL PO PRN (21:47)
[2018-08-15] MEDS: NEO-SYNEPHRINE 50 MG in NS 250 ML IV SCH (02:15)
[2018-08-15] MEDS: NS 1,000 ML IV SCH ×3 (02:15→22:08)
--- NOTE | 2018-08-15 02:25 | PROGRESS NOTE ---
DATE: 08/14/2018 SUBJECTIVE: Patient notes that she is feeling much better. Denies any cough or congestion currently. Denies any fevers. Does still have some shortness of breath, but notes overall is improved. PHYSICAL EXAMINATION: Vital Signs: Temperature 97.7 degrees, pulse 82, respiratory 18, BP 119/69. General: Patient is awake, alert. She is in minimal respiratory distress. HEENT: Normocephalic. Neck: Supple. CARDIOVASCULAR: Regular rate. Chest: Decreased but equal breath sounds. No current wheezing. No crackles. Abdomen: Soft, nondistended. Extremities: Moves all extremities. ASSESSMENT: 1. Left upper lobe pneumonia. 2. Right upper lobe small loculated pneumothorax. 3. Squamous cell carcinoma of the lung, followed by Dr. Freeman. 4. Severe protein calorie malnutrition. 5. Chronic nausea. 6. Hyponatremia. 7. Chronic anxiety and depression. PLAN: We will continue patient in the hospital. We will continue to follow. We will continue to encourage oral intake. Overall, she is much improved. She is off Janusz-Synephrine. We will continue vancomycin and Zosyn and we will follow. cc: Evan Knapp MD
[2018-08-15] MEDS: ZOSYN 3.375 GM in NS 50 ML IV SCH ×4 (04:26→22:07)
[2018-08-15] MEDS: XOPENEX NEB INH SCH ×5 (06:19→21:21)
[2018-08-15] MEDS: ATROVENT NEB INH SCH ×5 (06:19→21:21)
[2018-08-15] MEDS: POTASSIUM CHLORIDE 20% LIQUID PEG SCH (08:27)
[2018-08-15] MEDS: SODIUM CHLORIDE 0.9% INJ SCH (17:30)
[2018-08-15] MEDS: PROTONIX IV SCH (17:30)
[2018-08-15] MEDS: TYLENOL PO PRN (21:18)
--- NOTE | 2018-08-16 00:17 | PROGRESS NOTE ---
DATE: 08/15/2018 SUBJECTIVE: Patient states she is feeling fine, is in fact asking to go home but then asking for PICC line as well. Her notes that she is actually starting to eat a little bit better although not much. PHYSICAL EXAMINATION: Vital Signs: Temperature 97.7 degrees, pulse 68, respiratory 20, BP 124/78 although her systolic was 60 last night before starting Janusz-Synephrine. INCOMPLETE REPORT - DICTATION ENDS HERE cc: Evan Knapp MD
--- NOTE | 2018-08-16 00:21 | PROGRESS NOTE ---
DATE: 08/15/2018 CONTINUATION REPORT: PHYSICAL EXAMINATION: General: Patient is awake, alert. She is in no current respiratory distress. She is very pleasant to talk with. Sitting up talking with her . HEENT: Normocephalic. Neck: Supple. Cardiovascular: Regular rate. Chest: Decreased breath sounds bilaterally. Positive rhonchi throughout. Abdomen: Soft, nondistended. Extremities: Moves all extremities. ASSESSMENT: 1. Pneumonia. We will recheck a chest x-ray tomorrow. 2. Right upper lobe loculated pneumothorax. 3. Hypokalemia. 4. Hyponatremia. Labs are currently pending. 5. Squamous cell carcinoma of the right lung status post resection in October of 2017. 6. Severe protein calorie malnutrition. Patient is actually starting to eat better per her . 7. Chronic anxiety, depression. 8. Hypotension. Patient's normal blood pressures are in the upper 80s to low 90s, but her recent blood pressures last night although 60s certainly are low. Janusz-Synephrine was started at that point. We will attempt to wean off today. We will continue vancomycin and Zosyn and we will follow. cc: Evan Knapp MD
[2018-08-16] MEDS: ATROVENT NEB INH SCH ×7 (00:32→23:27)
[2018-08-16] MEDS: XOPENEX NEB INH SCH ×7 (00:32→23:28)
[2018-08-16] MEDS: NS 1,000 ML IV SCH ×3 (05:51→23:22)
[2018-08-16] MEDS: ZOSYN 3.375 GM in NS 50 ML IV SCH ×4 (05:51→23:20)
[2018-08-16] MEDS: POTASSIUM CHLORIDE 20% LIQUID PEG SCH (10:13)
[2018-08-16] MEDS: SODIUM CHLORIDE 0.9% INJ SCH (17:48)
[2018-08-16] MEDS: PROTONIX IV SCH (17:48)
--- NOTE | 2018-08-16 19:24 | PROGRESS NOTE ---
DATE: 08/16/2018 SUBJECTIVE: Patient overall notes that she is feeling better. She still has some cough and congestion. PHYSICAL EXAMINATION: Vital Signs: Temp 97.7, pulse 83, respiratory 20, BP 72/52 to 90/60. General: Patient is awake, alert. She is in no current respiratory distress. Overall, she is improving. HEENT: Normocephalic. Neck: Supple. Cardiovascular: Regular rate. Chest: Clear, No crackles. Abdomen: Soft. Extremities: Moves all extremities. ASSESSMENT: 1. Left upper lobe pneumonia. 2. Right upper lobe loculated pneumothorax. 3. Hyponatremia. 4. Hypokalemia. 5. Squamous cell carcinoma of the right lung. 6. Severe protein calorie malnutrition. PLAN: Overall, patient is improving. Continue antibiotics. Her blood pressures are low, but this is chronic for her. She is awake, alert. She is tolerating it well. We will not restart [*] and will hopefully transfer her to the floor and will follow. cc: Evan Knapp MD
[2018-08-16] MEDS: OFIRMEV 1000 MG/ISOTONIC SOLN 1,000 MG/100 ML BOTTLE IV PRN (20:07)
[2018-08-17] MEDS: ATROVENT NEB INH SCH ×4 (03:41→12:00)
[2018-08-17] MEDS: XOPENEX NEB INH SCH ×4 (03:41→12:00)
[2018-08-17] MEDS: NS 1,000 ML IV SCH (06:03)
[2018-08-17] MEDS: ZOSYN 3.375 GM in NS 50 ML IV SCH (06:03)
[2018-08-17 07:04] LABS: HEMATOCRIT 29.2 % (37.0-47.0); HEMOGLOBIN 9.5 g/dL (12.0-16.0); MCH 32.4 PG (27-31); MCHC 32.5 g/dL (33-37); MCV 99.7 FL (81-99); MPV 10.1 FL (7.4-10.4); RBC 2.93 XMIL (4.2-5.4); RDW 11.5 % (11.5-14.5); WBC 4.3 X1000 (4.8-10.8)
[2018-08-17 07:21] LABS: AGAP 12; ALBUMIN 2.4 g/dL (3.5-5.0); ALKALINE PHOSPHATASE 154 U/L (32-104); BUN 5 mg/dL (8-22); CALCIUM 8.2 mg/dL (8.8-10.2); CHLORIDE 108 mmol/L (98-107); COSMO 277; CREATININE 0.8 mg/dL (0.5-0.9); ESTIMATED GFR > 60; GLUCOSE 113 mg/dL (70-104); GOT 20 U/L (10-30); GPT 33 U/L (10-36); MAGNESIUM 1.3 mg/dL (1.5-2.7); POTASSIUM 3.7 mmol/L (3.5-5.1); SODIUM 140 mmol/L (136-145); TCO2 20 mmol/L (25-35); TOTAL BILIRUBIN < 0.15 mg/dL (0.20-1.00); TOTAL PROTEIN 5.1 g/dL (6.3-8.3)
--- NOTE | 2018-08-17 07:52 | Diag Imaging Result Doc PS360 ---
EXAM: CHEST-PORTABLE - 08/17/2018 HISTORY: hypoxia TECHNIQUE: Portable chest COMPARISON: 08/12/2018 FINDINGS: Heart size is normal. There are postsurgical changes on the right similar to prior. The consolidation at the lateral left lower lung appears to have decreased mildly. There are no other acute changes identified. IMPRESSION: Mild decrease in left lower lung consolidation. Electronically signed by Marcelo Rose 08/17/2018 7:50 AM
[2018-08-17] MEDS ORDERED: MAGNESIUM SULFATE 2 GM/S.W.I. 2 GM/50 ML IVPB IV ONE (11:48)
--- NOTE | 2018-08-17 13:04 | DISCHARGE SUMMARY ---
ADMISSION DATE: 08/12/2018 DISCHARGE DATE: 08/17/2018 DISCHARGE DIAGNOSES: 1. Left upper lobe pneumonia. 2. Right upper lobe loculated pneumothorax, but that is status post procedure that has been present previously. HOSPITAL COURSE: The patient is improved. Her last blood pressure at 4 was recorded 80/47, but her current blood pressure is 99/57, systolic in the 120s, heart rate stable. She is on room air 100%. She has not had a fever since the . She is very adamant about going home. I am not sure really if I want to get in the way of that. In any case, she came in for shortness of breath and cough. She is a cancer patient and she is status post looks like a thoracotomy and she has had reconstructed ribs it looks like per her scan. She was placed on Zosyn and vancomycin. I think Dr. Haro was consulted. He saw her on the and he did not feel that the loculated pneumothorax was anything to be concerned about, as it has been stable. In any case, she has progressed well. She is allergic to multiple things but not penicillin as far as I can tell. She has tolerated the Zosyn without difficulty so I think I am going to discharge her on Augmentin. She refuses to take any medications except through her PEG tube, which is odd, but she has difficulty swallowing. DISCHARGE MEDICATIONS: Reportedly, she was only on Toradol and Omnicef, previously, but I am going to give her Augmentin liquid 500 q.12 for another 10 days and a Combivent inhaler. FOLLOWUP: She will follow up with her PCP, who is Dr. Knapp. Dr. Freeman is her MOBILE DEVELOPMENT MANAGER. TIME SPENT AT DISCHARGE: 32 minute discharge. cc: Deny Dailey MD
[2018-08-17 14:48] VITALS: BP 102/65
== END 2018-08-17 15:10 | disposition home or self-care (01) | DRG 193 ==
LOC: P.ED 17:00 → P.EDIPHOLD 08-12 02:14 → SUATTDRO 08-12 02:14 → P.MEDSURG 08-12 07:34 → P.ICU 08-12 18:07
PROVIDERS: ATTEND Internal Medicine
CPT/HCPCS: 71010; 71045; 71275; 74177; 80048; 80053; 81001; 82550; 83605; 83735; 83880; 84484; 85025; 85027; 85610; 85730; 87040; 87088; 94640; 94761; 94799; 96361; 96365; 96366; 96367; 96375; 99285; A9270; C9113; J0131; J1200; J2370; J2543; J3370; J7030; J7040; J7050; Q9967; S0164

== ENCOUNTER 2018-11-21 22:16 | Inpatient (IN) ==
[2018-11-22 00:19] LABS: AGAP 13; ALBUMIN 4.4 g/dL (3.5-5.0); ALKALINE PHOSPHATASE 135 U/L (32-104); BUN 7 mg/dL (8-22); CALCIUM 9.1 mg/dL (8.8-10.2); CHLORIDE 96 mmol/L (98-107); COSMO 263; CREATININE 0.7 mg/dL (0.5-0.9); ESTIMATED GFR > 60; GLUCOSE 141 mg/dL (70-104); GOT 16 U/L (10-30); GPT 10 U/L (10-36); LIPASE 21 U/L (13-60); SODIUM 131 mmol/L (136-145); TCO2 22 mmol/L (25-35)
[2018-11-22 00:22] LABS: BASO# 0.02 X1000 (0.0-0.2); BASO% 0.2 % (0.0-0.8); HEMATOCRIT 38.2 % (37.0-47.0); HEMOGLOBIN 13.3 g/dL (12.0-16.0); IMM GRAN# 0.01 X1000 (0.0-0.04); IMM GRAN% 0.1 % (0.0-0.5); LYMPH# 0.88 X1000 (1.2-3.4); LYMPH% 7.1 % (20.5-51.1); MCH 31.8 PG (27-31); MCHC 34.8 g/dL (33-37); MCV 91.4 FL (81-99); MONO# 0.68 X1000 (0.11-0.59); MONO% 5.5 % (1.7-9.3); MPV 9.7 FL (7.4-10.4); NEUT# 10.77 X1000 (1.4-6.5); NEUT% 87.1 % (42.2-75.2); PLT 187 X1000 (130-400); RBC 4.18 XMIL (4.2-5.4); RDW 12.1 % (11.5-14.5); WBC 12.36 X1000 (4.8-10.8)
[2018-11-22 00:44] LABS: BILIRUBIN URINE NEGATIVE (NEGATIVE); BLOOD URINE NEGATIVE (NEGATIVE); CLARITY CLEAR (CLEAR); COLOR YELLOW; GLUCOSE URINE NEGATIVE (NEGATIVE); KETONE URINE NEGATIVE (NEGATIVE); LEUKOCYTES URINE TRACE (NEGATIVE); NITRITE URINE NEGATIVE (NEGATIVE); PROTEIN URINE NEGATIVE (NEGATIVE); SP GRAVITY URINE 1.005; URINE BACTERIA 1+ /HFP; URINE EPITHELIAL CELLS <10 /HPF (<10); URINE RBC <10 /HPF (<10); URINE WBC <10 /HPF (<10); UROBILINOGEN URINE NORMAL
[2018-11-22 00:44] LABS: INFLUENZA A NEGATIVE (NEGATIVE); INFLUENZA B NEGATIVE (NEGATIVE)
[2018-11-22 00:45] LABS: URINE SOURCE CLEAN CATCH
[2018-11-22] MEDS ORDERED: ROCEPHIN 1 GM in NS 50 ML IV ONE (01:41)
--- NOTE | 2018-11-22 02:15 | EKG Report ---
Test Performed on : 11/22/2018 00:30:40 AM Test Reason : CP Blood Pressure : / mmHG Vent. Rate : 126 BPM Atrial Rate : 126 BPM P-R Int : 122 ms QRS Dur : 068 ms QT Int : 312 ms P-R-T Axes : 066 076 062 degrees QTc Int : 451 ms Sinus tachycardia. Biatrial enlargement Abnormal ECG When compared with ECG of 28-OCT-2018 13:46, (Unconfirmed) No significant change was found Unconfirmed Result
[2018-11-22] MEDS ORDERED: ZOFRAN IV ONE (02:34)
[2018-11-22 05:54] LABS: BASO# 0.02 X1000 (0.0-0.2); BASO% 0.1 % (0.0-0.8); EOS# 0.01 X1000 (0.0-0.7); EOS% 0.1 % (0.0-10.0); HEMATOCRIT 35.8 % (37.0-47.0); HEMOGLOBIN 12.6 g/dL (12.0-16.0); IMM GRAN# 0.03 X1000 (0.0-0.04); IMM GRAN% 0.2 % (0.0-0.5); LYMPH# 1.49 X1000 (1.2-3.4); LYMPH% 10.8 % (20.5-51.1); MCH 32.1 PG (27-31); MCHC 35.2 g/dL (33-37); MCV 91.3 FL (81-99); MONO# 0.84 X1000 (0.11-0.59); MONO% 6.1 % (1.7-9.3); MPV 9.6 FL (7.4-10.4); NEUT# 11.38 X1000 (1.4-6.5); NEUT% 82.7 % (42.2-75.2); PLT 195 X1000 (130-400); RBC 3.92 XMIL (4.2-5.4); RDW 12.2 % (11.5-14.5); WBC 13.77 X1000 (4.8-10.8)
[2018-11-22 06:06] LABS: INR 1.03
[2018-11-22 06:07] LABS: PTT 33.7 Seconds (22.3-41.8)
[2018-11-22 06:11] LABS: AGAP 14; ALBUMIN 4.1 g/dL (3.5-5.0); ALKALINE PHOSPHATASE 126 U/L (32-104); BUN 8 mg/dL (8-22); CALCIUM 8.8 mg/dL (8.8-10.2); CHLORIDE 95 mmol/L (98-107); CK PROFILE 65 U/L (24-173); COSMO 263; CREATININE 0.7 mg/dL (0.5-0.9); ESTIMATED GFR > 60; GLUCOSE 136 mg/dL (70-104); GOT 15 U/L (10-30); GPT 9 U/L (10-36); SODIUM 131 mmol/L (136-145); TCO2 23 mmol/L (25-35); TOTAL PROTEIN 6.7 g/dL (6.3-8.3)
--- NOTE | 2018-11-22 08:09 | Diag Imaging Result Doc PS360 ---
CHEST-1 VIEW - 11/22/2018 INDICATION: sepsis protocol COMPARISON: 11/21/2018 FINDINGS: Lung volumes are lower. There are no infiltrates. Heart size and pulmonary vascularity remain normal. IMPRESSION: No acute disease. Electronically signed by Yvon Bañuelos 11/22/2018 8:07 AM
--- NOTE | 2018-11-22 08:39 | Diag Imaging Result Doc PS360 ---
CHEST-2 VIEWS - 11/21/2018 INDICATION: cough and fever, hx of Ca lung COMPARISON: 10/28/2018 FINDINGS: Stable surgical changes to the right chest. No focal infiltrates, pneumothorax, or pleural effusion. Heart size is normal. IMPRESSION: No change from prior. Electronically signed by Yvon Bañuelos 11/22/2018 8:37 AM
[2018-11-22] MEDS ORDERED: ZOFRAN IV PRN (10:53)
[2018-11-22] MEDS ORDERED: NS 1,000 ML IV SCH (11:00)
[2018-11-22] MEDS ORDERED: SODIUM CHLORIDE 0.9% INJ SCH (11:00)
[2018-11-22] MEDS: PROTONIX IV SCH ×2 (11:21→22:16)
--- NOTE | 2018-11-22 15:52 | HISTORY AND PHYSICAL ---
CHIEF COMPLAINT: Headache and vomiting. HISTORY OF PRESENT ILLNESS: This is a 53-year-old female with a history of squamous cell carcinoma to the right lung, COPD, and gastroesophageal reflux disease. She presents to the emergency room complaining of generalized body aches, headache, nausea, and vomiting. She reports a T-max of 101.3 degrees at home. She does state that she is having episodes of increasing shortness of breath and coughing and during this time she does have chest tenderness, although it does resolve once coughing spell has resolved. At the hospital her T-max has been 99.9. She was noted to have a white count of 12.3. She has chest tenderness with coughing and deep breathing which does resolve with resolution of the cough. PAST MEDICAL HISTORY: 1. Squamous cell carcinoma of the right lung status post resection in October 2017. 2. Gastroesophageal reflux disease. 3. Intractable nausea and vomiting. 4. History of aortobifemoral graft. The patient stopped anticoagulation in October 2017. 5. Hyponatremia, chronic. 6. Recurring left upper lobe pneumonia. 7. Small loculated pneumothorax in the right upper lobe, which is chronic. 8. Biliary dyskinesia, status post laparoscopic cholecystectomy. 9. Anxiety and depression. PAST SURGICAL HISTORY: Aortobifemoral graft in 2008, iliac stent placement, lung resection of the right lobe in October 2017, and laparoscopic cholecystectomy in January 2018. SOCIAL HISTORY: She smokes 1-2 packs a day. She denies alcohol or illicit drug use. ALLERGIES: Clindamycin, codeine, Lortab, Demerol, morphine, Phenergan, Bactrim, Ultram, and Levaquin, all cause nausea and vomiting. HOME MEDICATIONS: A list will be obtained by the nursing staff and once verified we will review and restarted as is appropriate. REVIEW OF SYSTEMS: Discussed with patient with pertinent positives stated in the HPI. She denied any syncope or dizziness, palpitations, any black or bloody vomitus or stools, any hematuria, dysuria, frequency, urgency. PHYSICAL EXAMINATION: GENERAL: This is a 53-year-old female who is lying in the bed on the medical-surgical floor in no distress. VITAL SIGNS: Blood pressure is 92/54, with a heart rate of 97, respirations are 18, temperature is 99.9 degrees, with room air saturations 98 to 100%. EYES: Pupils are equal, round, react to light. EOMs are intact. Sclerae are anicteric. HEENT: Head is normocephalic, atraumatic. Mucous membranes are moist. NECK: Supple with trachea midline. CARDIOVASCULAR: Regular rate and rhythm. S1 and S2 are appreciated. She has no lower extremity edema. No gallops. No murmurs. Calves are nontender. Peripheral pulses are palpable x4 extremities. PULMONARY: Breath sounds are diminished. She does have rhonchi that somewhat clear to cough. Chest rises and falls symmetric with respiration. Chest wall is nontender to palpation gastrointestinal. GASTROINTESTINAL: Abdomen is soft, nontender, nondistended. Bowel sounds in all 4 quadrants. SKIN: Warm and dry. NEUROLOGIC: She is alert and oriented x3. LABS: WBC is 12.3, with hemoglobin 13.3, hematocrit 38.2, platelets of 187,000. Sodium 131, potassium 4, BUN 13, creatinine 7, with a glucose of 141. Urinalysis is essentially negative. Influenza A and B are negative. Blood cultures and urine culture are pending. ASSESSMENT AND PLAN: 1. Bronchitis. 2. Costochondritis. 3. History of chronic obstructive pulmonary disease. 4. History of squamous cell lung cancer to the right lung, status post resection. 5. Chronic hyponatremia. 6. Intractable nausea and vomiting. 7. Squamous cell carcinoma of the right lung, status post resection in October 2017. This has been followed by Dr. Freeman and Dr. Álvarez. 8. Severe protein calorie malnutrition. She continues with a PEG tube in place. We will identify her home nutrition and continue. 9. Intractable nausea and vomiting. We will use Zofran for nausea. PLAN: The patient has been admitted to the medical-surgical floor. She was given IV hydration. We will continue IV hydration with antibiotic coverage at present of Rocephin and azithromycin and any further antibiotics will be culture driven. For gastrointestinal prophylaxis, we will use Protonix. We will repeat a CBC and CMP in the morning. Further treatments pending hospital course. Dictated by LONDON Edgar for Evan Knapp MD cc: LONDON Edgar MD
[2018-11-22] MEDS: ZITHROMAX 500 MG/NS 500 MG/250 ML IVPB IV SCH (16:00)
[2018-11-22] MEDS: TYLENOL PO PRN (16:00)
--- NOTE | 2018-11-22 18:24 | PROGRESS NOTE ---
DATE: 11/22/2018 SUBJECTIVE: The patient complains of nausea, vomiting, and fever. PLAN: We will admit her to the hospital. IV fluids. We will follow. Sodium is low. She has a known history of malnutrition as well as lung cancer. We will continue to follow. Further orders as needed. Please see full dictation. The patient was seen and examined with nurse practitioner. cc: Evan Knapp MD
[2018-11-22] MEDS: ROCEPHIN 1 GM in NS 50 ML IV SCH (21:45)
[2018-11-23] MEDS: TYLENOL PO PRN ×2 (01:00→22:40)
[2018-11-23] MEDS ORDERED: VANCOMYCIN IV PER PHARMACY MISC SCH ×2 (02:30→10:15)
[2018-11-23] MEDS ORDERED: VANCOMYCIN 1 GM/NS 1 GM/250 ML IVPB IV ONE (03:00)
[2018-11-23 07:04] LABS: HEMATOCRIT 34.9 % (37.0-47.0); HEMOGLOBIN 11.9 g/dL (12.0-16.0); MCH 31.4 PG (27-31); MCHC 34.1 g/dL (33-37); MCV 92.1 FL (81-99); MPV 10.3 FL (7.4-10.4); RBC 3.79 XMIL (4.2-5.4); RDW 12.2 % (11.5-14.5); WBC 11.22 X1000 (4.8-10.8)
[2018-11-23 07:38] LABS: AGAP 11; ALBUMIN 3.5 g/dL (3.5-5.0); ALKALINE PHOSPHATASE 138 U/L (32-104); BUN 8 mg/dL (8-22); CALCIUM 8.5 mg/dL (8.8-10.2); CHLORIDE 101 mmol/L (98-107); COSMO 267; CREATININE 0.7 mg/dL (0.5-0.9); ESTIMATED GFR > 60; GLUCOSE 113 mg/dL (70-104); GOT 32 U/L (10-30); GPT 24 U/L (10-36); MAGNESIUM 1.3 mg/dL (1.5-2.7); POTASSIUM 3.9 mmol/L (3.5-5.1); SODIUM 134 mmol/L (136-145); TCO2 23 mmol/L (25-35); TOTAL PROTEIN 6.7 g/dL (6.3-8.3)
[2018-11-23] MEDS ORDERED: MAGNESIUM SULFATE 2 GM/S.W.I. 2 GM/50 ML IVPB IV ONE (10:11)
--- NOTE | 2018-11-23 10:39 | PROGRESS NOTE ---
DATE: 11/23/2018 SUBJECTIVE: Patient resting quietly in bed. No complaints voiced at this time. OBJECTIVE: Temperature 99.1 degrees, pulse 95, respirations 18, blood pressure 98/58, saturating 98% on room air. In general, this is a 53-year-old female who is lying in the bed, answers questions appropriately. HEMNT is normocephalic, atraumatic. Normal ENT inspection. Eyes: Pupils are equal, round, reactive to light and accommodation. Extraocular movements are intact. Lungs are clear to auscultation bilaterally with equal lung expansion and chest wall movement. Heart with regular rate and rhythm. No murmurs, rubs, or gallops. Abdomen is soft, nontender, nondistended. Bowel sounds are present x4 quadrants. Musculoskeletal: She has 4/5 strength x4 extremities. Neurological: The cranial nerves 2 through 12 appear grossly intact. LABORATORY DATA: White blood cell count of 11.22, hemoglobin 11.9, hematocrit 34.9, platelets 159,000. Sodium 134, potassium 3.9, chloride 101, CO2 of 23, BUN of 8, creatinine 0.7, glucose 113, magnesium 1.3. A preliminary blood culture 08/05 showed gram-positive cocci. ASSESSMENT: 1. Bacteremia with gram-positive cocci, awaiting final sensitivity. 2. Bronchitis. 3. Hypomagnesemia. 4. Hyponatremia, resolved. 5. Costochondritis, improved. 6. Intractable nausea/vomiting, resolved. 7. Squamous cell carcinoma of the right lung status post resection, October 2017, followed by Oncology. 8. Severe protein-calorie malnutrition. OUR PLAN: At this time, the patient does not have a peripheral IV line, and we are having difficulty obtaining so we will get a PICC line consult. We will await the final sensitivity, but most likely, the patient will need 2-week antibiotic treatment for her bacteremia. We will continue her normal saline at 75 mL an hour, Rocephin 1 gram IV q.24 h., and vancomycin per Pharmacy protocol. We will recheck a CBC, BMP in the a.m. The patient states that she does not use her PEG tube at this time for nutrition, that she has been eating a regular diet at home so we will continue with that. We will also give her magnesium sulfate 2 g IV today and recheck a magnesium level in the a.m. We will get Pharmaceutical Development Technician consulted to set up for her home IV antibiotic treatment as we await the sensitivity. Addendum: Patient seen and examined by myself. Agree with LONDON note. It reflects my assessment and plan. Will wait for final results for blood cultures in order to place PICC line. Will restart PEG tube feedings and will go from there. Dictated by LONDON Joseph for Lazaro Brand MD cc: LONDON Joseph MD [facility]
[2018-11-23] MEDS ORDERED: DUONEB (A & A) INH SCH (15:00)
[2018-11-23] MEDS: ZITHROMAX 500 MG/NS 500 MG/250 ML IVPB IV SCH (16:04)
[2018-11-23] MEDS: PROTONIX IV SCH ×2 (16:04→22:07)
[2018-11-23] MEDS: ROCEPHIN 1 GM in NS 50 ML IV SCH (20:52)
[2018-11-24] MEDS ORDERED: VANCOMYCIN 1 GM/NS 1 GM/250 ML IVPB IV SCH (03:00)
[2018-11-24 07:35] LABS: BASO# 0.02 X1000 (0.0-0.2); BASO% 0.3 % (0.0-0.8); EOS% 3.8 % (0.0-10.0); HEMATOCRIT 32.5 % (37.0-47.0); HEMOGLOBIN 11.1 g/dL (12.0-16.0); IMM GRAN# 0.01 X1000 (0.0-0.04); IMM GRAN% 0.1 % (0.0-0.5); LYMPH# 1.42 X1000 (1.2-3.4); LYMPH% 18.2 % (20.5-51.1); MCH 31.5 PG (27-31); MCHC 34.2 g/dL (33-37); MCV 92.3 FL (81-99); MONO# 0.56 X1000 (0.11-0.59); MONO% 7.2 % (1.7-9.3); NEUT# 5.51 X1000 (1.4-6.5); NEUT% 70.4 % (42.2-75.2); PLT 164 X1000 (130-400); RBC 3.52 XMIL (4.2-5.4); RDW 11.9 % (11.5-14.5); WBC 7.82 X1000 (4.8-10.8)
[2018-11-24 07:47] LABS: AGAP 10; BUN 6 mg/dL (8-22); CALCIUM 8.9 mg/dL (8.8-10.2); CHLORIDE 100 mmol/L (98-107); COSMO 268; CREATININE 0.6 mg/dL (0.5-0.9); ESTIMATED GFR > 60; GLUCOSE 101 mg/dL (70-104); MAGNESIUM 1.7 mg/dL (1.5-2.7); POTASSIUM 3.9 mmol/L (3.5-5.1); SODIUM 135 mmol/L (136-145); TCO2 25 mmol/L (25-35)
[2018-11-24 12:05] VITALS: BP 88/52
[2018-11-24] MEDS: PROTONIX IV SCH (13:34)
--- NOTE | 2018-11-24 18:42 | DISCHARGE SUMMARY ---
ADMISSION DATE: 11/22/2018 DISCHARGE DATE: 11/24/2018 PRIMARY CARE PHYSICIAN: Dr. Evan Knapp. ADMISSION DIAGNOSES: 1. Bronchitis. 2. Costochondritis. 3. History of chronic obstructive pulmonary disease. 4. History of squamous cell lung cancer to the right lung status post resection. 5. Chronic hyponatremia. 6. Intractable nausea, vomiting. 7. Squamous cell carcinoma of the right lung status post resection in October [address] Rodriguez. 8. Severe protein calorie malnutrition with percutaneous endoscopic gastrostomy tube placement. 9. Intractable nausea, vomiting. DISCHARGE DIAGNOSES: 1. Bronchitis. 2. Costochondritis. 3. Hypomagnesemia resolved. 4. Hyponatremia resolved. 5. Intractable nausea, vomiting resolved. 6. Bacteremia with gram-positive cocci final showing coagulase-negative Staphylococcus. 7. Severe protein calorie malnutrition. 8. Squamous cell carcinoma of the right lung status post resection October 2017 followed by Oncology. SUMMARY OF FINDINGS: This is a 53-year-old female who presented to the ER with generalized body aches, headache, nausea and vomiting. Had a max temperature at home of 101.3, having increased shortness of breath and coughing with some chest tenderness. Her max temperature in the hospital was noted to be 100.7. She had blood cultures that were initially reported as gram-positive cocci but the final culture result showed a coag-negative staph which is a contaminant so she did not have a bacteremia. She placed on IV antibiotics. We had the dietitian to consult with the patient on the assessment for her PEG tube calorie needs. We supplemented her sodium and magnesium and dietitian felt that she needed Jevity 1.5 bolus feedings of 120 mL t.i.d. with a 60 mL water flush after each feeding and if patient tolerated increase the Jevity to 240 mL t.i.d. and to increase the PEG tube feedings as intake continued to be very poor. She was still encouraged to have a regular diet also and it is now felt that she can safely be discharged home. DISCHARGE MEDICATION: She had a prescription for Augmentin liquid 12 mL p.o. q.12 hours for 10 days #250 mL, to continue her Combivent Respimat inhaler t.i.d. FOLLOWUP: She will need to follow up with her primary care physician in 1 to 2 weeks, call the office for an appointment. All discharge instructions have been reviewed with the patient and she verbalized understanding. TIME SPENT: 33 minutes. Dictated by LONDON Joseph for Lazaro Brand MD Addendum: Patient seen and examined by myself. Agree with LONDON note. It reflects my assessment and plan. cc: MD Lazaro Arshad MD [facility] CENTEROctavio
== END 2018-11-24 14:38 | disposition home or self-care (01) | DRG 190 ==
LOC: P.ED 22:16 → P.MEDSURG 11-22 02:50 → SUATTDRO 11-22 02:50
PROVIDERS: ATTEND Internal Medicine
CPT/HCPCS: 36415; 71010; 71020; 71045; 71046; 80048; 80053; 81001; 82550; 83605; 83690; 83735; 84484; 85025; 85027; 85610; 85730; 87040; 87088; 87275; 87276; 87804; 93005; 94761; A9270; C9113; J0456; J0696; J2405; J3370; J3475; J7030; S0164

== ENCOUNTER 2019-01-15 14:08 | Inpatient (IN) ==
--- NOTE | 2019-01-15 14:55 | Diag Imaging Result Doc PS360 ---
EXAM: FLAT/UPRIGHT ABD/1 VIEW CHEST - 01/15/2019 HISTORY: vomiting abd pain TECHNIQUE: Supine and upright abdomen one view chest COMPARISON: 11/22/2018 one view chest FINDINGS: The bowel gas pattern appears nonspecific and nonobstructive. There is a percutaneous gastrostomy tube with its tip at the medial left upper quadrant. There are surgical clips at the right upper quadrant and midline lower abdomen. There is no free air identified. Upright chest shows normal heart size. There are postsurgical changes on the right. There is scarring with questionable superimposed infiltrate at the right apex. There are no other acute changes identified. There are symmetrical nipple shadow artifacts noted over the lung bases. IMPRESSION: Nonspecific bowel gas pattern. Postsurgical changes at right chest. Scarring with possible superimposed infiltrate at right apex. Electronically signed by Marcelo Rose 01/15/2019 2:53 PM
[2019-01-15 15:02] LABS: BASO# 0.02 X1000 (0.0-0.2); BASO% 0.1 % (0.0-0.8); EOS# 0.01 X1000 (0.0-0.7); EOS% 0.1 % (0.0-10.0); HEMATOCRIT 45.1 % (37.0-47.0); IMM GRAN# 0.04 X1000 (0.0-0.04); IMM GRAN% 0.3 % (0.0-0.5); LYMPH# 1.94 X1000 (1.2-3.4); LYMPH% 13.9 % (20.5-51.1); MCH 32.2 PG (27-31); MCHC 35.5 g/dL (33-37); MCV 90.7 FL (81-99); MONO# 0.75 X1000 (0.11-0.59); MONO% 5.4 % (1.7-9.3); MPV 9.4 FL (7.4-10.4); NEUT% 80.2 % (42.2-75.2); PLT 285 X1000 (130-400); RBC 4.97 XMIL (4.2-5.4); RDW 13.4 % (11.5-14.5); WBC 13.96 X1000 (4.8-10.8)
[2019-01-15 15:25] LABS: ESTIMATED GFR > 60
[2019-01-15 15:31] LABS: AGAP 19; ALBUMIN 4.7 g/dL (3.5-5.0); ALKALINE PHOSPHATASE 169 U/L (32-104); BUN 22 mg/dL (8-22); CALCIUM 10.1 mg/dL (8.8-10.2); CHLORIDE 89 mmol/L (98-107); COSMO 273; CREATININE 0.8 mg/dL (0.5-0.9); GLUCOSE 185 mg/dL (70-104); GOT 14 U/L (10-30); GPT 8 U/L (10-36); LIPASE 14 U/L (13-60); POTASSIUM 3.8 mmol/L (3.5-5.1); SODIUM 132 mmol/L (136-145); TCO2 25 mmol/L (25-35); TOTAL PROTEIN 8.2 g/dL (6.3-8.3)
[2019-01-15 15:32] LABS: BILIRUBIN URINE NEGATIVE (NEGATIVE); BLOOD URINE NEGATIVE (NEGATIVE); GLUCOSE URINE NEGATIVE (NEGATIVE); KETONE URINE TRACE mg/dL (NEGATIVE); LEUKOCYTES URINE TRACE (NEGATIVE); NITRITE URINE NEGATIVE (NEGATIVE); PH URINE 6.5; PROTEIN URINE TRACE mg/dL (NEGATIVE); SP GRAVITY URINE 1.015; UROBILINOGEN URINE 1 mg/dL
[2019-01-15 15:33] LABS: CLARITY CLEAR (CLEAR); COLOR YELLOW; URINE SOURCE CLEAN CATCH
[2019-01-15 15:35] LABS: URINE BACTERIA NEGATIVE /HFP; URINE CAST NONE SEEN /LPF; URINE CRYSTAL NONE SEEN /HPF; URINE EPITHELIAL CELLS >10 /HPF (<10); URINE RBC <10 /HPF (<10); URINE SMALL ROUND CELLS TRANSITIONAL PRESENT; URINE WBC <10 /HPF (<10); URINE YEAST NONE SEEN /HPF
[2019-01-15] MEDS ORDERED: NS 500 ML IV ONE (16:17)
[2019-01-15] MEDS ORDERED: NS 1,000 ML IV ONE ×2 (16:18→17:54)
[2019-01-15] MEDS ORDERED: ZOFRAN IV ONE (16:21)
[2019-01-15] MEDS ORDERED: ROCEPHIN 1 GM in NS 50 ML IV ONE (16:23)
[2019-01-15 17:05] LABS: INR 0.92; PROTIME 12.8 Seconds (11.0-16.0)
[2019-01-15 17:11] LABS: PTT < 20.0 Seconds (22.3-41.8)
--- NOTE | 2019-01-15 17:23 | Diag Imaging Result Doc PS360 ---
EXAM: CT ABDOMEN/PELVIS W/O CONTRAST - 01/15/2019 HISTORY: pain TECHNIQUE: CT abdomen/pelvis without contrast. No contrast administered per request of the referring provider. COMPARISON: 10/04/2018 CT abdomen/pelvis with IV contrast FINDINGS: There is some limitation of detail due to the lack of administered contrast. There is mild scarring at the visualized lung bases. There is a percutaneous gastrostomy tube extending to mid stomach. There is no evidence of bowel obstruction. There is no substantial bowel wall thickening identified. The appendix is unremarkable. There is no abscess identified. There is no free air or free fluid identified. There are no substantial abnormalities of the liver, spleen, adrenal glands, or pancreas identified. The gallbladder surgically absent. There is no renal stone or substantial hydronephrosis identified. There is mild cortical scarring at the right kidney. There is no abnormal pelvic mass or fluid collection identified. There are no substantially enlarged lymph nodes identified. There are postsurgical changes of aortobifemoral bypass. The patency of the bypass is not established without administered intravenous contrast. IMPRESSION: No visible acute abnormality. This exam was performed using automated exposure control, adjustment of mA or kV according to patient size, and/or use of iterative reconstruction technique. Electronically signed by Marcelo Rose 01/15/2019 5:21 PM
--- NOTE | 2019-01-15 17:37 | PROVIDER DOCUMENTATION ---
This chart was entered by Jud Haro Scribe, acting as scribe for Farnaz Stewart MD. HPI-Abdominal Pain/GI Problem - General Chief Complaint: Vomiting Stated Complaint: VOMITING Time Seen by Provider: 01/15/19 15:57 Source: patient Allergies/Adverse Reactions: Patient Allergies Allergy/AdvReac Type Severity Reaction Status Date / Time clindamycin Allergy NAUSEA/VOMI Verified 10/28/18 15:47 TING codeine [Codeine] Allergy NAUSEA/VOMI Verified 10/28/18 15:47 TING hydrocodone bitartrate * Allergy NAUSEA/VOMI Verified 10/28/18 15:47 [From Lortab] TING levofloxacin [From Levaquin] Allergy RASH Verified 10/28/18 15:47 meperidine [From Demerol] Allergy NAUSEA/VOMI Verified 10/28/18 15:47 TING morphine Allergy NAUSEA/VOMI Verified 10/28/18 15:47 TING nitrofurantoin Allergy NAUSEA Verified 10/28/18 15:47 macrocrystalline * [From Macrodantin] promethazine HCl * Allergy NAUSEA/VOMI Verified 10/28/18 15:47 [From Phenergan] TING sulfamethoxazole Allergy NAUSEA/VOMI Verified 10/28/18 15:47 [From Bactrim] TING tramadol HCl * [From Ultram] Allergy NAUSEA Verified 10/28/18 15:47 trimethoprim [From Bactrim] Allergy NAUSEA/VOMI Verified 10/28/18 15:47 TING Home Medications: Home Medication List Medication Instructions Recorded Confirmed Last Taken Type Ipratropium/Albuterol INH 1 puff INH TID #1 inhaler 08/17/18 11/22/18 Unknown Rx [Combivent Respimat Inhaler] - History of Present Illness-ABD Nature of Presenting Problems: 53 yof presents to the ed with c/o n/v for 3 days with abdominal pain epigastric RUQ and LUQ. pt sts has seen some blood streaks in vomit. pt has G tube placed in abdomen Abdominal Pain Onset Location: reports: epigastric Pain Radiation: reports: RUQ, LUQ Quality of Pain: reports: aching Severity in ED: reports: moderate Onset/Duration: reports: 3 days ago Timing: reports: still present, intermittent Activities at Onset: reports: light activity Exposure to sick contacts?: No Modifying Factors: improves with: nothing Associated Symptoms: reports: constipation, loss of appetite, nausea, vomiting. denies: back/neck pain, chest pain, cough, diarrhea, dizziness, fever/chills, headaches, shortness of breath Last BM: 4 days ago Dark Stools Present?: reports: none noticed Rectal Bleeding: reports: none # of Diarrhea Episodes: 0 Rectal Pain: reports: none # of Vomiting Episodes: 4 Emesis Description: reports: other (yellow with blood in it) Bruising or Bleeding Gums?: No Similar Symptoms Previously?: No Recently seen or treated by another doctor?: No Review of Systems - Adult - REVIEW OF SYSTEMS - ADULT Constitutional: denies: chills, fever Eyes: reports: no symptoms reported Ears, Nose, Mouth & Throat: reports: no symptoms reported Cardiovascular: denies: chest pain, palpitations Respiratory: reports: no symptoms reported Gastrointestinal: reports: see HPI, abdominal pain, constipation, nausea, vomiting Genitourinary: reports: no symptoms reported Musculoskeletal: denies: back pain, neck pain Integumentary: reports: no symptoms reported Neurological: denies: dizziness/vertigo, headache/migraines Psychiatric: reports: no symptoms reported Endocrine: reports: no symptoms reported Hematologic/Lymphatic: reports: no symptoms reported Allergic/Immunologic: reports: no symptoms reported All Other Systems: Reviewed and Negative Past History - Adult - PAST MEDICAL HISTORY-ADULT Review of Records: reports: Nursing Assessment Review, Medications Reviewed Major Childhood Illnesses: reports: denies history Cardiovascular: reports: CHF, hyperlipidemia, other (vascular aaa dissection) Respiratory: reports: bronchitis, COPD, cancer (lung), other (clubbed fingers) Gastrointestinal: reports: GERD Obstetrical/Gynecological: reports: denies history Genitourinary: reports: denies history Musculoskeletal: reports: denies history Hand Dominance: Right Handed Neurological: reports: denies history Psychiatric: reports: denies history Endocrine/Immune: reports: denies history Other Conditions: reports: denies history - PRIOR SURGERIES/PROCEDURES Surgical/Procedure History: reports: recent surgery (10/02/17 lung cancer removal) , BTL, other (vacular aaa diss/G tube placed) - IMMUNIZATION STATUS Childhood Immunizations: See Nurse Assessment Flu Vaccine: See Nurse Assessment - FAMILY HISTORY Family History: reviewed, not pertinent - SOCIAL HISTORY Smoking: cigarettes, less than 1 pack/day Provider spent 3-5 mins advising pt. on dangers of tobacco.: Discussed manners to quit use, and f/u contacts for add'l counseling. Substance Use: denies Alcohol Use Frequency: never Living Situation: family Physical Exam-General - PHYSICAL EXAM-ADULT Initial Vital Signs Reviewed: Yes - CONSTITUTIONAL General Appearance: appears well, alert, mild distress, thin - EYES Eyes: PERRL/EOMI, pink conjunctivae - HEAD, EARS, NOSE, MOUTH & THROAT HENMT: TMs normal. negative: moist mucous membranes (dry oral) - NECK Neck: non-tender, full range of motion, normal inspection - RESPIRATORY Respiratory: chest non-tender, lungs clear, normal breath sounds - CARDIOVASCULAR Cardiovascular: normal peripheral pulses, regular rate, rhythm - GASTROINTESTINAL (ABDOMEN) Abdominal Exam: normal bowel sounds, soft, tenderness (epigastric tenderness on palpation), other (g-tube placed). negative: distended, guarding - LYMPHATIC Lymphatic: no adenopathy - MUSCULOSKELETAL Back Exam: normal inspection, no CVA tenderness, no vertebral tenderness Extremity: normal range of motion, non-tender, normal inspection, no pedal edema , no calf tenderness, normal capillary refill, pelvis stable - SKIN Integumentary: normal color, normal turgor, warm/dry - NEUROLOGIC Neurologic: grossly normal, no motor/sensory deficits - PSYCHIATRIC Psych/Mental Status: normal mood/affect, normal thought content, normal thought process, oriented x 3 Progress - PLAN OF CARE/RESULTS Progress/Plan/Lab Results: Vital Signs - 8 hr 01/15/19 14:11 01/15/19 15:57 Temperature 98 F Pulse Rate 99 H 118 H Respiratory Rate 18 15 Blood Pressure 113/80 107/74 O2 Sat by Pulse Oximetry 98 98 Laboratory Results - last 24 hr 01/15/19 01/15/19 01/15/19 14:50 14:50 14:50 WBC 13.96 H RBC 4.97 Hgb 16.0 Hct 45.1 MCV 90.7 MCH 32.2 H MCHC 35.5 RDW Std Deviation 13.4 Plt Count 285 MPV 9.4 Immature Gran % (Auto) 0.3 Neut % (Auto) 80.2 H Lymph % (Auto) 13.9 L [place] % (Auto) 5.4 Eos % (Auto) 0.1 Baso % (Auto) 0.1 Immature Gran # (Auto) 0.04 Neut # (Auto) 11.20 H Lymph # (Auto) 1.94 [place] # (Auto) 0.75 H Eos # (Auto) 0.01 Baso # (Auto) 0.02 Sodium 132 L Potassium 3.8 Chloride 89 L Carbon Dioxide 25 Anion Gap 19 BUN 22 Creatinine 0.8 Estimated GFR/1.73 m2 > 60 BUN/Creatinine Ratio 28 Glucose 185 H Calculated Osmolality 273 Calcium 10.1 Total Bilirubin 1.10 H AST 14 ALT 8 L Alkaline Phosphatase 169 H Total Protein 8.2 Albumin 4.7 Globulin 4.0 Albumin/Globulin Ratio 1.0 Amylase 38 Lipase 14 Urine Source Urine Color Urine Clarity Urine pH Ur Specific [place] Urine Protein Urine Ketones Urine Blood Urine Nitrite Urine Bilirubin Urine Urobilinogen Urine Microscopic RBC Urine WBC Urine Microscopic WBC Ur Epithelial Cells Urine Crystals Small Round Cells Urine Bacteria Urine Casts Urine Yeast Urine Glucose 01/15/19 14:50 WBC RBC Hgb Hct MCV MCH MCHC RDW Std Deviation Plt Count MPV Immature Gran % (Auto) Neut % (Auto) Lymph % (Auto) [place] % (Auto) Eos % (Auto) Baso % (Auto) Immature Gran # (Auto) Neut # (Auto) Lymph # (Auto) [place] # (Auto) Eos # (Auto) Baso # (Auto) Sodium Potassium Chloride Carbon Dioxide Anion Gap BUN Creatinine Estimated GFR/1.73 m2 BUN/Creatinine Ratio Glucose Calculated Osmolality Calcium Total Bilirubin AST ALT Alkaline Phosphatase Total Protein Albumin Globulin Albumin/Globulin Ratio Amylase Lipase Urine Source CLEAN CATCH Urine Color YELLOW Urine Clarity CLEAR Urine pH 6.5 Ur Specific [place] 1.015 Urine Protein TRACE A Urine Ketones TRACE Urine Blood NEGATIVE Urine Nitrite NEGATIVE Urine Bilirubin NEGATIVE Urine Urobilinogen 1 Urine Microscopic RBC <10 Urine WBC TRACE A Urine Microscopic WBC <10 Ur Epithelial Cells >10 A Urine Crystals NONE SEEN Small Round Cells TRANSITIONAL PRESENT Urine Bacteria NEGATIVE Urine Casts NONE SEEN Urine Yeast NONE SEEN Urine Glucose NEGATIVE Orders Category Date Time Status Cardiac Monitoring DIRECTED Care 01/15/19 16:10 Active IV Insertion ORDERED Care 01/15/19 16:10 Active Notify MD of + Sepsis Screen NOW Care 01/15/19 16:10 Active Notify Physician As Ordered Care 01/15/19 16:[address] ABD/PELVIS W/IV CONT ONLY [CT] Stat Exams 01/15/19 16:22 Ordered FLAT/UPRIGHT ABD/1 VIEW CHEST [RAD] Stat Exams 01/15/19 14:17 Completed AMYLASE [CHEM] Stat Lab 01/15/19 14:50 Completed BLOOD CULTURE [BLDCUL] Stat Lab 01/15/19 16:10 Uncollected CBC WITH DIFF [HEME] Stat Lab 01/15/19 14:50 Completed CK PROFILE [SP CHEM] Stat Lab 01/15/19 16:17 Ordered COMPREHENSIVE METABOLIC PANEL [CHEM] Stat Lab 01/15/19 14:50 Completed LACTATE, PLASMA [CHEM] Q3H Lab 01/15/19 16:15 Uncollected LACTATE, PLASMA [CHEM] Q3H Lab 01/15/19 19:15 Uncollected LACTATE, PLASMA [CHEM] Q3H Lab 01/15/19 22:15 Uncollected LACTATE, PLASMA [CHEM] Stat Lab 01/15/19 16:10 Uncollected LIPASE [CHEM] Stat Lab 01/15/19 14:50 Completed PROTIME WITH INR [COAG] Stat Lab 01/15/19 16:10 Ordered PTT [COAG] Stat Lab 01/15/19 16:10 Ordered TROPONIN T Stat Lab 01/15/19 16:[address] W/POSS RFLX CULT [URINALYSIS] Stat Lab 01/15/19 14:50 Completed URINE CULTURE [RM] Routine Lab 01/15/19 15:36 Ordered 0.9% Sodium Chloride Inj [Ns] 1,000 ml Med 01/15/19 16:18 Active IV 125 mls/hr 0.9% Sodium Chloride Inj [Ns] 500 ml Med 01/15/19 16:17 Active IV 999 mls/hr CefTRIAXONE [Rocephin] 1 gm Med 01/15/19 16:23 Active 0.9% Sodium Chloride Inj [Ns] 50 ml IV NOW Ondansetron [Zofran] Med 01/15/19 16:21 Discontinued 4 mg IV NOW ONE Oxygen Device Stat Oth 01/15/19 16:10 Active Result Diagrams: 01/15/19 14:50 01/15/19 14:50 - REASSESSMENT Reassessment #1 Time Reassessed: 16:32 ( at [facility]) Status: unchanged Reassessment #2 Time Reassessed: 17:25 ( at bedside) Status: unchanged - XRAY 1 XRAY: Bilateral XRAY Study: Abdomen Impression: See EMR Report (EXAM: FLAT/UPRIGHT ABD/1 VIEW CHEST - 01/15/2019 HISTORY: vomiting abd pain TECHNIQUE: Supine and upright abdomen one view chest COMPARISON: 11/22/2018 one view chest FINDINGS: The bowel gas pattern appears nonspecific and nonobstructive. There is a percutaneous gastrostomy tube with its tip at the medial left upper quadrant. There are surgical clips at the right upper quadrant and midline lower abdomen. There is no free air identified. Upright chest shows normal heart size. There are postsurgical changes on the right. There is scarring with questionable superimposed infiltrate at the right apex. There are no other acute changes identified. There are symmetrical nipple shadow artifacts noted over the lung bases. IMPRESSION: Nonspecific bowel gas pattern. Postsurgical changes at right chest. Scarring with possible superimposed infiltrate at right apex. Vandana ctronically signed by Marcelo Rose 01/15/2019 2:53 PM 01/15/19 [id number] Interpreting Physician: Marcelo Rose MD Dictated Date/Time: 01/15/19 0717 cc: Farnaz Stewart MD; Evan Knapp MD) - CT/MRI 1 CT Study: Abdomen, Pelvis Impression: See EMR Report (EXAM: CT ABDOMEN/PELVIS W/O CONTRAST - 01/15/2019 HISTORY: pain TECHNIQUE: CT abdomen/pelvis without contrast. No contrast administered per request of the referring provider. COMPARISON: 10/04/2018 CT abdomen/pelvis with IV contrast FINDINGS: There is some limitation of detail due to the lack of administered contrast. There is mild scarring at the visualized lung bases. There is a percutaneous gastrostomy tube extending to mid stomach. There is no evidence of bowel obstruction. There is no substantial bowel wall thickening identified. The appendix is unremarkable. There is no abscess identified. There is no free air or free fluid identified. There are no substantial abnormalities of the liver, spleen, adrenal glands, or pancreas identified. The gallbladder surgically absent. There is no renal stone or substantial hydronephrosis identified. There is mild cortical scarring at the right kidney. There is no abnormal pelvic mass or fluid collection identified. There are no substantially enlarged lymph nodes identified. There are postsurgical changes of aortobifemoral bypass. The patency of the bypass is not established without administered intravenous contrast. IMPRESSION: No visible acute abnormality. This exam was performed using automated exposure control, adjustment of mA or kV according to patient size, and/or use of iterative reconstruction technique. Electronically signed by Marcelo Rose 01/15/2019 5:21 PM 01/15/19 1721 Interpreting Physician: Marcelo Rose MD Dictated Date/Time: 01/15/19 1716 cc: Farnaz Stewart MD; Evan Knapp MD) - CONSULTS/PCP/HOSPITALIST Notification #1 *Consult/PCP/Hospitalist*: hospitalist dr knapp Time Discussed: 17:46 Consult Disposition: Admit Departure - Departure Date of Disposition Decision: 01/15/19 Time of Disposition Decision: 17:46 DIAGNOSIS: Tobacco use disorder Abdominal pain Qualifiers: Abdominal location: epigastric Qualified Code(s): R10.13 - Epigastric pain Vomiting Qualifiers: Vomiting type: unspecified Vomiting Intractability: non-intractable Nausea presence: with nausea Qualified Code(s): R11.2 - Nausea with vomiting, unspecified Sepsis Qualifiers: Sepsis type: sepsis due to unspecified organism Qualified Code(s): A41.9 - Sepsis, unspecified organism Disposition: ADMITTED INPATIENT 09 Certified Medical Emergency: Emergent Condition: Stable Additional Freetext Instructions: ED Follow Up Instructions: You have been treated by a care provider in the Emergency Department. These instructions are being provided to you so you can have an understanding of how to care for yourself upon discharge. Upon discharge from the Emergency Department, you are responsible for making arrangements for follow-up care by a physician of your choice. Take all prescribed medications as directed. Return to the Emergency Department immediately for any new or worsening symptoms. You may call the Physician Referral phone number at [phone] to obtain a list of Physicians who are taking new patients. Referrals and Follow-Ups: Evan Knapp MD [Primary Care Provider] - Discharge Education: Steps to Quit Smoking, [id number] - Critical Care Note This patient required my direct & personal management of CC.: Yes Total Time (mins): 32 Critical Care Statement: This patient required my direct personal management to treat or rule out processes, the absence of which, could potentiallly result in sudden, clinically significant life or limb threatening deterioration. Attestation - Physician/ SCOTT Attestation Patient care was provided by Advanced Practice Provider:: No The physician spent face to face time with patient:: Yes Advanced Practice Provider documentation review:: Supervising physician onsite and consulted in the evaluation and care of this patient. The physician did have a face to face encounter with the patient. This chart was documented by the indicated scribe, (Jud Haro Scribe) and accurately reflects the services I performed and decisions made by me, Farnaz Stewart MD, as attested by the provider's signature.
[2019-01-15] MEDS ORDERED: ZOFRAN IV PRN ×2 (17:54→18:54)
[2019-01-15] MEDS ORDERED: TYLENOL PO PRN (18:54)
[2019-01-15] MEDS: PROTONIX 80 MG in NS 80 ML IV SCH (19:33)
--- NOTE | 2019-01-15 20:17 | HISTORY AND PHYSICAL ---
CHIEF COMPLAINT: Vomiting. HISTORY OF PRESENT ILLNESS: The patient is a 53-year-old female with a known history of anorexia. She has a G-tube due to her extremely poor oral intake. States that she has been having epigastric, right upper quadrant, left upper quadrant pain for several days. Started vomiting 3 days ago. Yesterday, started having blood-tinged sputum and today came to the ER. Denies any bright red blood, denies bleeding in her emesis. Denies blood in her stool, blood in her urine. ALLERGIES: Clindamycin, Codeine, hydrocodone, Demerol, morphine, Macrobid, Phenergan, Bactrim and tramadol, all nausea. MEDICATIONS: Combivent is the only medication she currently takes. REVIEW OF SYSTEMS: Positive right upper, left upper quadrant abdominal pain. She has chronic constipation. Loss of appetite, anorexia, chronic nausea, occasional vomiting, chronically decreased oral intake, constantly fatigued. Denies any fevers, chills, cough, congestion, or other upper respiratory type symptoms. Denies dysuria, urinary frequency, urgency, hesitancy. Denies polyuria or polydipsia. Denies skin rashes. Chronically anxious, stressed and depressed. PAST MEDICAL HISTORY: Congestive heart failure, hyperlipidemia, history of history of COPD with recurrent bronchitis, history of lung cancer, chronic reflux, chronic anorexia. She had a partial lobectomy October 02, 2017, had a BTL. Had a G-tube placed, removed and then re-replaced. FAMILY HISTORY: Noncontributory, although her mom did just pass within the past month from Alzheimer's. SOCIAL HISTORY: The patient continues to smoke. Denies alcohol. She is . She is cared for by her sister. PHYSICAL EXAMINATION: VITAL SIGNS: Temperature 98, pulse 98, respiratory 20, BP 113/80, saturation 98% on room air. GENERAL: Patient is awake, alert, currently in no respiratory distress. She is chronically ill appearing with somewhat acute worsening of her chronic stature. HEENT: Normocephalic, atraumatic. MYKEL. NECK: Supple. No JVD. CARDIOVASCULAR: Regular rate. No murmurs. CHEST: Clear, nonlabored. ABDOMEN: Soft, diffusely tender, but more so in the epigastric region. Positive bowel sounds. EXTREMITIES: Moves all extremities. No edema. NEUROLOGIC: No focal neurologic changes. SKIN: Warm and dry, no rashes. LABS: WBC 13.9, hemoglobin and hematocrit stable at [address] of the abdomen demonstrates postsurgical changes. No acute abnormality. ASSESSMENT: 1. Nausea, vomiting with hematemesis after prolonged vomiting, expect Boerhaave tear. 2. Chronic anorexia. 3. Abdominal pain. 4. Chronic protein calorie malnutrition, moderate. 5. History of chronic obstructive pulmonary disease. 6. History of lung cancer with surgery in 2018. 7. History of congestive heart failure. 8. Chronic tobacco abuse. PLAN: We will continue patient in the hospital, place her on IV fluids, Protonix drip. Discussed with her that she can have occasional ice chips and sips of water. Interestingly, patient states that she cannot drink water, she can only drink Sprite. Discussed with patient again that sips of water and occasional ice chip is all that she needs to have currently. We will continue to follow. Her hemoglobin and hematocrit is stable and at her baseline. If this does continue to worsen and turn into chris bleeding, then we will consult GI for EGD. cc: Evan Knapp MD [facility]
[2019-01-15] MEDS: NS 1,000 ML IV SCH (20:49)
[2019-01-16] MEDS: NS 1,000 ML IV SCH ×3 (04:36→19:22)
[2019-01-16] MEDS: PROTONIX 80 MG in NS 80 ML IV SCH (04:37)
[2019-01-16 05:55] LABS: HEMATOCRIT 35.8 % (37.0-47.0); HEMOGLOBIN 12.2 g/dL (12.0-16.0); MCH 31.5 PG (27-31); MCHC 34.1 g/dL (33-37); MCV 92.5 FL (81-99); MPV 9.2 FL (7.4-10.4); RBC 3.87 XMIL (4.2-5.4); RDW 13.2 % (11.5-14.5); WBC 8.11 X1000 (4.8-10.8)
[2019-01-16 05:56] LABS: AGAP 14; ALKALINE PHOSPHATASE 133 U/L (32-104); BUN 20 mg/dL (8-22); CHLORIDE 92 mmol/L (98-107); COSMO 271; CREATININE 0.7 mg/dL (0.5-0.9); ESTIMATED GFR > 60; GLUCOSE 127 mg/dL (70-104); GOT 11 U/L (10-30); GPT 6 U/L (10-36); MAGNESIUM 1.7 mg/dL (1.5-2.7); POTASSIUM 3.4 mmol/L (3.5-5.1); SODIUM 133 mmol/L (136-145); TCO2 27 mmol/L (25-35); TOTAL PROTEIN 6.7 g/dL (6.3-8.3)
[2019-01-16] MEDS: ZOFRAN ODT PO PRN ×2 (11:01→19:33)
[2019-01-16] MEDS: PROTONIX MISC SCH ×3 (11:02→23:30)
--- NOTE | 2019-01-16 14:08 | PROGRESS NOTE ---
DATE: 01/16/2019 SUBJECTIVE: The patient notes that her nausea is a little bit better. She is still having occasional dry heaves. Has not really been drinking anything, other than ice chips. Still having abdominal pain. PHYSICAL EXAM: Vital Signs: Temperature 96, pulse 96, respiratory 18, BP 104/63. General: Patient is awake, alert. She is in no current respiratory distress. Appears pretty close back to her baseline. HEENT: Normocephalic. Neck: Supple. Cardiovascular: Regular rate. No murmurs. Chest: Clear, nonlabored. Abdomen: Soft, diffusely tender, but minimally. Positive bowel sounds. Extremities: Moves all extremities. ASSESSMENT: 1. Nausea, vomiting. 2. Hematemesis secondary to Boerhaave tear. 3. Chronic anorexia. 4. Abdominal pain. 5. Chronic protein calorie malnutrition. 6. Chronic obstructive pulmonary disease. 7. Lung cancer with surgery in September 2017. 8. Congestive heart failure by history, systolic. 9. Chronic tobacco abuse. 10. Adult failure to thrive. 11. Hyponatremia. 12. Hypokalemia. 13. Mild hyperglycemia. PLAN: We will continue patient in the hospital. Continue to follow. I will attempt to advance her diet. Hopefully, she can tolerate this. If not, we will have to consult Surgery for IV access. cc: Evan Knapp MD
[2019-01-16] MEDS ORDERED: PROTONIX IV SCH (19:12)
[2019-01-17] MEDS: NS 1,000 ML IV SCH ×3 (06:23→19:33)
[2019-01-17] MEDS: PROTONIX MISC SCH ×2 (06:24→20:57)
[2019-01-17 09:33] LABS: HEMATOCRIT 34.1 % (37.0-47.0); HEMOGLOBIN 11.9 g/dL (12.0-16.0); MCHC 34.9 g/dL (33-37); MCV 91.7 FL (81-99); MPV 9.5 FL (7.4-10.4); RBC 3.72 XMIL (4.2-5.4); RDW 12.8 % (11.5-14.5); WBC 6.64 X1000 (4.8-10.8)
[2019-01-17 09:43] LABS: AGAP 12; ALBUMIN 3.9 g/dL (3.5-5.0); ALKALINE PHOSPHATASE 117 U/L (32-104); BUN 17 mg/dL (8-22); CHLORIDE 92 mmol/L (98-107); COSMO 265; CREATININE 0.8 mg/dL (0.5-0.9); ESTIMATED GFR > 60; GLUCOSE 108 mg/dL (70-104); GOT 14 U/L (10-30); GPT 6 U/L (10-36); POTASSIUM 3.2 mmol/L (3.5-5.1); SODIUM 131 mmol/L (136-145); TCO2 27 mmol/L (25-35); TOTAL PROTEIN 6.3 g/dL (6.3-8.3)
[2019-01-17] MEDS: ZOFRAN ODT PO PRN (11:48)
--- NOTE | 2019-01-17 21:15 | PROGRESS NOTE ---
DATE: 01/17/2019 SUBJECTIVE: The patient notes that she has only had 1 episode of emesis today. States she is still not drinking well, she is started to tolerate sips. Denies any fevers, chills. Denies any blood in her emesis earlier, denies any blood in her stool. PHYSICAL: Temperature 98, pulse 76, respiratory 18, BP 84-100 systolic.General: Patient is awake, alert. She is in no distress. Her blood pressures are at her baseline. HEENT: Normocephalic. Neck: Supple. CV: Regular rate. Chest: Clear nonlabored. Abdomen: Soft, nondistended. Extremities: Moves all extremities. ASSESSMENT: 1. Nausea, vomiting with hematemesis that appears to be resolved. 2. Chronic anorexia. 3. Abdominal pain. 4. Chronic protein calorie malnutrition, moderate to severe. 5. Hematemesis appears to be resolved. 6. Chronic obstructive pulmonary disease stable. 7. Lung cancer with surgery 2018. 8. History of congestive heart failure. 9. Chronic tobacco abuse. Patient continues to smoke. 10. Hyponatremia. 11. Hypokalemia. PLAN: We will continue patient in the hospital. Continue to encourage oral intake. Hopefully she will be able to continue to drink on her own. If not then she will need a PICC line as she currently has no IV access. cc: Evan Knapp MD
[2019-01-18 05:31] VITALS: BP 83/50
[2019-01-18] MEDS: NS 1,000 ML IV SCH (06:05)
[2019-01-18] MEDS: PROTONIX MISC SCH (06:09)
[2019-01-18 06:22] LABS: HEMATOCRIT 33.6 % (37.0-47.0); HEMOGLOBIN 11.7 g/dL (12.0-16.0); MCH 31.6 PG (27-31); MCHC 34.8 g/dL (33-37); MCV 90.8 FL (81-99); MPV 9.4 FL (7.4-10.4); RBC 3.7 XMIL (4.2-5.4); RDW 12.5 % (11.5-14.5); WBC 7.64 X1000 (4.8-10.8)
[2019-01-18 06:48] LABS: AGAP 12; ALBUMIN 3.9 g/dL (3.5-5.0); ALKALINE PHOSPHATASE 121 U/L (32-104); BUN 13 mg/dL (8-22); CALCIUM 8.9 mg/dL (8.8-10.2); CHLORIDE 92 mmol/L (98-107); COSMO 265; CREATININE 0.7 mg/dL (0.5-0.9); ESTIMATED GFR > 60; GLUCOSE 107 mg/dL (70-104); GOT 15 U/L (10-30); GPT 6 U/L (10-36); MAGNESIUM 1.6 mg/dL (1.5-2.7); POTASSIUM 3.4 mmol/L (3.5-5.1); SODIUM 132 mmol/L (136-145); TCO2 28 mmol/L (25-35); TOTAL PROTEIN 6.3 g/dL (6.3-8.3)
== END 2019-01-18 10:23 | disposition home or self-care (01) | DRG 369 ==
LOC: P.ED 14:08 → P.MEDSURG 14:08 → OBSVTOIN 19:53 → SUATTDRO 19:53
PROVIDERS: ADMIT Family Medicine; ATTEND Internal Medicine
CPT/HCPCS: 74022; 74176; 80053; 81001; 82150; 82550; 83605; 83690; 83735; 84443; 84484; 85025; 85027; 85610; 85730; 87040; 87088; 96361; 96365; 96367; 96375; 99285; 99291; A9270; C9113; J0696; J2405; J7030; J7040; S0164